=== PATIENT | male | born 1960 | race African-American/Black ===

== ENCOUNTER 2017-05-30 07:46 | Inpatient (IN) | payer OTHER ==
[2017-05-29 16:41] VITALS: BMI 32.5
[2017-05-30] MEDS ORDERED: LIDOCAINE 1%/EPI 1:100000 (20 ML MULTI DOSE VIAL) ONE (08:02)
[2017-05-30] MEDS ORDERED: BUPIVACAINE HCL/PF 0.5% (5MG/ML) 10 ML VIAL ONE (08:02)
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
[2017-05-30] MEDS ORDERED: MIDAZOLAM HCL 2 MG/2 ML SINGLE DOSE VIAL ONE (10:54)
[2017-05-30] MEDS ORDERED: PROPOFOL 20 ML ONE (10:59)
[2017-05-30] MEDS ORDERED: ROCURONIUM BROMIDE 50 MG/5 ML VIAL ONE ×2 (10:59→11:36)
[2017-05-30] MEDS ORDERED: GENTAMICIN SO4 80 MG/2 ML VIAL ONE (11:10)
[2017-05-30] MEDS ORDERED: SODIUM CHLORIDE 0.9% P/F 10 ML VIAL IJ ONE ×2 (11:10→14:13)
[2017-05-30] MEDS ORDERED: ceFAZolin SODIUM 1 GM VIAL ONE ×2 (11:10→14:13)
[2017-05-30] MEDS ORDERED: LIDOCAINE HCL/PF 2% SDV 5ML VIAL ONE (11:10)
[2017-05-30] MEDS ORDERED: LIDOCAINE 1%/EPI 1:100000 (50 ML MULTI DOSE VIAL) INF ONE (11:17)
[2017-05-30] MEDS ORDERED: ceFAZolin SODIUM 1 GM VIAL IVPB ONE ×2 (11:19→14:15)
[2017-05-30] MEDS ORDERED: GENTAMICIN SO4 80 MG/2 ML VIAL IVPB ONE (11:20)
[2017-05-30] MEDS ORDERED: DEXAMETHASONE SOD PHOSPHATE 4 MG/1 ML VIAL ONE (11:21)
[2017-05-30] MEDS ORDERED: ONDANSETRON 4 MG/2 ML VIAL ONE (11:21)
[2017-05-30] MEDS ORDERED: VANCOMYCIN 1,000 MG VIAL (RESTRICTED TO ID ONLY) ONE (14:36)
[2017-05-30] MEDS ORDERED: GLYCOPYRROLATE 0.2 MG/1 ML VIAL ONE (14:40)
[2017-05-30] MEDS ORDERED: NEOSTIGMINE METHYLSULFATE 0.5 MG/ML - 10 ML MDV ONE (14:40)
[2017-05-30] MEDS ORDERED: BUPIVACAINE HCL/PF 0.5% (5MG/ML) 10 ML VIAL IJ ONE (15:05)
[2017-05-30] MEDS ORDERED: PROMETHAZINE HCL 25 MG/1 ML VIAL IVPB PRN (15:38)
[2017-05-30] MEDS ORDERED: DEXAMETHASONE SOD PHOSPHATE 4 MG/1 ML VIAL IVPUSH PRN (15:38)
[2017-05-30] MEDS ORDERED: ONDANSETRON 4 MG/2 ML VIAL IVPUSH PRN ×2 (15:38→15:59)
[2017-05-30] MEDS ORDERED: LACTATED RINGERS SOLUTION 1,000 ML IV SCH (15:45)
[2017-05-30] MEDS ORDERED: diazePAM 5 MG TABLET PO PRN (15:59)
[2017-05-30] MEDS ORDERED: HYDROmorphone *PCA* 10MG/50ML DISP.SYRIN PCA ONE (16:08)
[2017-05-30] MEDS ORDERED: SODIUM CHLORIDE 1,000 ML IV SCH (16:15)
[2017-05-30] MEDS: HYDROmorphone *PCA* 10MG/50ML DISP.SYRIN PCA SCH (16:45)
--- NOTE | 2017-05-30 16:55 | PN ---
Teaching Attending Note Name of Resident: Thee Ritter ATTENDING PHYSICIAN STATEMENT I saw and evaluated the patient. I reviewed the resident's note and discussed the case with the resident. I agree with the resident's findings and plan as documented. SUBJECTIVE:56yo M with PMH chronic back pain ( s/p horse riding accident 20+ years ago) came for lumbar laminectomy for uncontrolled pain. states he was following with Dr Laura from orthopedic surgery and since pain has not improved recommended surgery. has not had any other procedures on his back or steroid injections in the past. states he typically takes percocets as needed for pain. denies Cp, SOB, fever, chills, N/V/C/D. last BM this morning OBJECTIVE: Last Vital Signs Temp Pulse Resp BP Pulse Ox 98.3 F 70 18 152/87 99 05/30/17 08:35 05/30/17 08:35 05/30/17 08:35 05/30/17 08:35 05/30/17 08:35 General lethargic CV S1 S2 RRR no murmur/rub/gallop Lungs CTA anteriorly Abdomen soft NT/ND obsese Extremities no pedal edema no calf tenderness Back +SUKUMAR drain with seroussangenous fluid ASSESSMENT AND PLAN: 56yo M with PMH chronic back pain came for scheduled lumbar laminectomy 1. Chronic back pain- s/p lumbar lamincetomy with SUKUMAR drain placed today by neurosurgery. obtain CT lumbar spine with contrast in the AM. started on prophylactic Vanco and Gentamycin. Cx sent and will follow. will consult ID for abx management. bedrest for tonight. clear liquid diet. SERGEANT AT [employer] pump for pain. further management per neurosurgery. will need PT eval when cleared for OOB 2. Acute blood loss anemia- significant blood loss during surgery. check CBC now and then in 8H to ensure Hgb is stable. txn for Hgb <7 3. DVT ppx- hep sq
[2017-05-30 16:56] LABS: MCHC 32.4 g/dl (32.0-35.9); MEAN CELL VOLUME 80.5 fl (80-96); MEAN PLT VOLUME 9.1 fl (7.5-11.1); PLATELET COUNT 257 K/MM3 (134-434); RDW 18.2 % (11.9-15.9); WHITE BLOOD COUNT 10.5 K/mm3 (4.0-10.0)
[2017-05-30] MEDS ORDERED: VANCOMYCIN 1,500 MG in DEXTROSE 5%-WATER - 500 ML IVPB ONE (17:00)
[2017-05-30] MEDS ORDERED: SODIUM CHLORIDE 1,000 ML IV STA (17:48)
[2017-05-30 17:55] LABS: ALBUMIN 2.7 g/dl (3.4-5.0); ANION GAP 11 (8-16); BILIRUBIN,TOTAL 0.4 mg/dL (0.2-1.0); CALCIUM 8.3 mg/dL (8.5-10.1); CO2 20 mmol/L (21-32); CREATININE 1.7 mg/dL (0.7-1.3); GLUCOSE,RANDOM 178 mg/dL (74-106); SGOT/AST 37 U/L (15-37); SGPT/ALT 52 U/L (12-78); TOT PROT 5.5 g/dl (6.4-8.2)
[2017-05-30 17:56] LABS: ALK PHOS 100 U/L (45-117)
--- NOTE | 2017-05-30 20:59 | HP ---
CHIEF COMPLAINT: Back pain PCP: HISTORY OF PRESENT ILLNESS: The patient is a 56 yo m w/ PMH HTN (not on medication) and chronic low back pain 2/2 to a fall from a horse comes into the ED for a scheduled laminectomy. The patient has been following with Dr. Laura for pain control and was referred to Dr. Ayala when his pain was not able to be controlled. At this point, he elected to undergo a laminectomy and instrumented fusion of L3-S1. Recent Travel: none PAST MEDICAL HISTORY: -HTN, not on medications -Chronic low back pain PAST SURGICAL HISTORY: -liver biopsy -tonsilectomy @ age 20 -circumscision @ age 20 Social History: Smokin-6 cigarettes per day Alcohol: none Drugs: none Family History: HTN and DM in patient's sisters Allergies No Known Allergies Allergy (Verified 05/29/17 16:36) HOME MEDICATIONS: Home Medications Medication Instructions Recorded Oxycodone HCl/Acetaminophen 1 - 2 tab PO Q6H 10/14/12 [Percocet 5-325 mg Tablet] REVIEW OF SYSTEMS CONSTITUTIONAL: Absent: fever, chills, diaphoresis, generalized weakness, malaise, loss of appetite, weight change HEENT: Absent: rhinorrhea, nasal congestion, throat pain, throat swelling, difficulty swallowing, mouth swelling, ear pain, eye pain, visual changes CARDIOVASCULAR: Absent: chest pain, syncope, palpitations, irregular heart rate, lightheadedness , peripheral edema RESPIRATORY: Absent: cough, shortness of breath, dyspnea with exertion, orthopnea, wheezing, stridor, hemoptysis GASTROINTESTINAL: Absent: abdominal pain, abdominal distension, vomiting, diarrhea, constipation, melena, hematochezia GENITOURINARY: Absent: dysuria, frequency, urgency, hesitancy, hematuria, flank pain, genital pain MUSCULOSKELETAL: Absent: myalgia, arthralgia, joint swelling, neck pain SKIN: Absent: rash, itching, pallor HEMATOLOGIC/IMMUNOLOGIC: Absent: easy bleeding, easy bruising, lymphadenopathy, frequent infections ENDOCRINE: Absent: unexplained weight gain, unexplained weight loss, heat intolerance, cold intolerance NEUROLOGIC: Absent: headache, focal weakness or paresthesias, dizziness, unsteady gait, seizure, mental status changes, bladder or bowel incontinence PSYCHIATRIC: Absent: anxiety, depression, suicidal or homicidal ideation, hallucinations. PHYSICAL EXAMINATION Vital Signs - 24 hr 05/30/17 05/30/17 05/30/17 08:35 15:46 16:00 Temperature 98.3 F 99.1 F Pulse Rate 70 102 H 97 H Respiratory 18 23 22 Rate Blood Pressure 152/87 106/68 108/90 O2 Sat by Pulse 99 97 95 Oximetry (%) 05/30/17 05/30/17 05/30/17 16:15 16:30 16:45 Temperature Pulse Rate 92 H 94 H 93 H Respiratory 22 14 15 Rate Blood Pressure 103/48 96/51 95/52 O2 Sat by Pulse 95 95 95 Oximetry (%) 05/30/17 05/30/17 05/30/17 17:00 17:15 17:30 Temperature Pulse Rate 89 89 102 H Respiratory 16 13 20 Rate Blood Pressure 99/53 92/57 110/65 O2 Sat by Pulse 95 95 94 L Oximetry (%) 05/30/17 17:45 Temperature Pulse Rate 97 H Respiratory 20 Rate Blood Pressure 101/53 O2 Sat by Pulse 98 Oximetry (%) GENERAL: Awake, alert, and fully oriented, in no acute distress. HEAD: Normal with no signs of trauma. EYES: Pupils equal, round and reactive to light, extraocular movements intact, sclera anicteric, conjunctiva clear. No lid lag. EARS, NOSE, THROAT: oropharynx clear without exudates. Moist mucous membranes. NECK: Normal range of motion, supple without lymphadenopathy, JVD, or masses. LUNGS: Breath sounds equal, mild expiratory wheezes, and no crackles. No accessory muscle use. HEART: Regular rate and rhythm, normal S1 and S2 without murmur, rub or gallop. ABDOMEN: Soft, slight tenderness to palpation in RLQ, not distended, normoactive bowel sounds, no guarding, no rebound, no masses. No hepatomegaly or splenomegaly. MUSCULOSKELETAL: Normal range of motion at all joints. No bony deformities or tenderness. No CVA tenderness. UPPER EXTREMITIES: 2+ pulses, warm, well-perfused. No cyanosis. No clubbing. No peripheral edema. LOWER EXTREMITIES: 2+ pulses, warm, well-perfused. No calf tenderness. No peripheral edema. NEUROLOGICAL: Cranial nerves II-X intact. Normal speech. gait not observed. Strength 5/5 in all extremities PSYCHIATRIC: Cooperative. Good eye contact. Appropriate mood and affect. SKIN: Warm, dry, normal turgor, no rashes or lesions noted, normal capillary refill. Laboratory Results - last 24 hr 05/30/17 05/30/17 16:20 16:20 WBC 10.5 H D RBC 4.01 D Hgb 10.4 L D Hct 32.3 L D MCV 80.5 MCH 26.0 MCHC 32.4 RDW 18.2 H Plt Count 257 MPV 9.1 Sodium 140 Potassium 4.9 Chloride 109 H Carbon Dioxide 20 L Anion Gap 11 BUN 20 H Creatinine 1.7 H D Creat Clearance w eGFR 42.21 Random Glucose 178 H D Calcium 8.3 L Total Bilirubin 0.4 D AST 37 ALT 52 Alkaline Phosphatase 100 D Total Protein 5.5 L D Albumin 2.7 L D ASSESSMENT/PLAN: The patient is a 56 yo m w/ PMH HTN and chronic back pain who presents to the ED for an elective laminectomy and instrumented fusion. #S/P laminectomy -f/u neurosurgery reccs -Pt on DYNAMOMETER MECHANIC for pain control -prophylactic vancomycin and gentamicin -bedrest overnight -Will consult ID for abx mgmt -f/u urine cx -f/u CT spine to confirm hardware placement. -promethazine PRN nausea #acute blood loss anemia -patient with 1500cc blood loss intraoperatively -post op CBC stable at 10.4 -will RPT CBC in 8 hrs to ensure stable counts -transfuse according to protocol #HTN -Patient with hx HTN -Patient not on medications at home -monitor BP #FEN -NS @ 125 -monitor lytes -regular diet in AM #PPTX -Hep SQ 5ku TID -TEDS b/l -SCDs b/l #dispo -Admit to med-surg. Visit type - Emergency Visit Emergency Visit: Yes ED Registration Date: 05/30/17 Care time: The patient presented to the Emergency Department on the above date and was hospitalized for further evaluation of their emergent condition. - New Patient This patient is new to me today: Yes Date on this admission: 05/30/17 - Critical Care Critical Care patient: No
[2017-05-30] MEDS: ACETAMINOPHEN 325 MG TABLET (FP) PO SCH ×2 (21:22)
[2017-05-30] MEDS: HEPARIN NA (PORCINE) 5,000 UNITS/ML 1ML VIAL SQ SCH (21:24)
[2017-05-30] MEDS ORDERED: VANCOMYCIN 1,000 MG in DEXTROSE 5%-WATER - 250 ML IVPB SCH (22:00)
[2017-05-30] MEDS: PIPERACILLIN/TAZOB 3.375 GM 50 ML IVPB SCH (22:44)
--- NOTE | 2017-05-31 01:32 | OP ---
Operative Note - Note: Operative Date: 05/30/17 Pre-Operative Diagnosis: lumbar degenerative disc disease with instability Operation: L3-S1 laminectomy with interbody cage placement and pedicle screws with fusion L3-S1 Surgeon: Palmer Tillman Manager Of Sales: Viv May Anesthesiologist/BASIC SCIENCES PROFESSOR: Ethan Denise Anesthesia: General Estimated Blood Loss (mls): 1,200 Drains, Volume Out (mls): 400 (peter) Fluid Volume Replaced (mls): 3,500 Operative Report Dictated: Yes
[2017-05-31] MEDS: PIPERACILLIN/TAZOB 3.375 GM 50 ML IVPB SCH ×4 (02:12→20:05)
[2017-05-31 03:11] LABS: MCH 26.1 pg (25.7-33.7); MCHC 32.4 g/dl (32.0-35.9); MEAN CELL VOLUME 80.5 fl (80-96); PLATELET COUNT 203 K/MM3 (134-434); RDW 17.7 % (11.9-15.9)
[2017-05-31] MEDS: ACETAMINOPHEN 325 MG TABLET (FP) PO SCH ×4 (04:49→21:57)
[2017-05-31] MEDS: SODIUM CHLORIDE 1,000 ML IV SCH ×2 (04:52→13:51)
[2017-05-31] MEDS: HEPARIN NA (PORCINE) 5,000 UNITS/ML 1ML VIAL SQ SCH ×2 (05:42→13:50)
[2017-05-31 08:50] LABS: MCHC 32.4 g/dl (32.0-35.9); MEAN CELL VOLUME 80.2 fl (80-96); MEAN PLT VOLUME 9.1 fl (7.5-11.1); PLATELET COUNT 193 K/MM3 (134-434); RDW 18.2 % (11.9-15.9); WHITE BLOOD COUNT 10.2 K/mm3 (4.0-10.0)
[2017-05-31] MEDS ORDERED: PT OWN MED DRAWER 7, Y5N ONE ×3 (09:06→16:55)
[2017-05-31 09:20] LABS: ANION GAP 6 (8-16); CO2 24 mmol/L (21-32); CREATININE 1.2 mg/dL (0.7-1.3); GLUCOSE,RANDOM 105 mg/dL (74-106)
--- NOTE | 2017-05-31 11:20 | PN ---
Progress Note (short form) - Note Progress Note: Anesthesia postop note and pain management follow up 56 y/o M s/p GA for lumbar PLIF, terminal clerk for postop pain management POD#1, vss, aaox3, reports some pain Encouraged to use the terminal clerk Will continue terminal clerk for now No anesthesia complications.
--- NOTE | 2017-05-31 13:11 | PN ---
Progress Note (short form) - Note Progress Note: POD #1 Alert. Sitting in chair at bedside (just finished eating lunch). Has incisional tenderness but adequate pain control via ORDER CLERK. Still has peter in place as his bun/cr was slightly elevated. Denies n/v/f/c, CP , SOB, weakness or tingling sensation to his lower extremities. Last Vital Signs Temp Pulse Resp BP Pulse Ox 98.1 F 72 20 142/72 100 05/31/17 08:10 05/31/17 08:45 05/31/17 08:45 05/31/17 08:45 05/30/17 21:00 CBC 05/31/17 06:00 TREND 05/30/17 05/31/17 16:20 06:00 BUN 20 H 18 Creatinine 1.7 H D 1.2 D SUKUMAR OUTPUT 05/31/17 05/31/17 05/31/17 03:20 06:18 12:10 Left 5 20 20 Right 30 40 90 Gen: alert. nad. Back: aquacel intact. No palpable hematoma. Neuro: 5/5 strength bilat : peter to gravity (clear) LE: scds bilat. no calf tenderness. A/P s/p L3-L5 laminectomy w/ interbody cage placement and pedicle screws with fusion L3-S1 1. Must wear his TLSO brace if seated in chair and or ambulating greater than 5 minutes. 2. TLSO brace from [employer] (ordered) 3. Physical therapy 4. ID following --> Vanco & Zosyn 5. peter to be dc'd tomorrow morning (ordered for 7am)
[2017-05-31] MEDS ORDERED: POLYETHYLENE GLYCOL 3350 119 GM BTL PO PRN (13:40)
--- NOTE | 2017-05-31 13:55 | CON.ID ---
Consult Consult Specialty:: infectious diseases Reason for Consultation:: post op spinal surgery - History of Present Illness History of Present Illness: 56 yo m w/ PMH HTN chronic low back pain 2/2 to a fall from a horse comes s/p laminectomy. The patient has been following with Dr. Laura for pain control and was referred to Dr. Ayala when his pain was not able to be controlled. At this point, he elected to undergo a laminectomy and instrumented fusion of L3- S1. 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 No: Asthma, Bronchitis, COPD Gastrointestinal: No: Constipation, GERD, GI Bleed Renal/: No: Renal Failure, Hematuria, UTI - Alcohol/Substance Use Hx Alcohol Use: Yes (rarely) - Smoking History Smoking history: Current every day smoker Have you smoked in the past 12 months: Yes Aproximately how many cigarettes per day: 7 Home Medications - Allergies Allergies/Adverse Reactions: Allergies Allergy/AdvReac Type Severity Reaction Status Date / Time No Known Allergies Allergy Verified 05/29/17 16:36 - Home Medications Home Medications: Ambulatory Orders Oxycodone HCl/Acetaminophen [Percocet 5-325 mg Tablet] 1 - 2 tab PO Q6H Review of Systems - Review of Systems Constitutional: reports: Other Eyes: reports: No Symptoms HENT: reports: No Symptoms Neck: reports: No Symptoms Cardiovascular: reports: No Symptoms Respiratory: reports: No Symptoms Gastrointestinal: reports: No Symptoms Genitourinary: reports: No Symptoms Musculoskeletal: reports: Back Pain Integumentary: reports: No Symptoms Neurological: reports: No Symptoms Endocrine: reports: No Symptoms Hematology/Lymphatic: reports: No Symptoms Psychiatric: reports: Paranoia Physical Exam Vital Signs: Vital Signs Temperature 98.1 F 05/31/17 08:10 Pulse Rate 94 H 05/31/17 12:45 Respiratory Rate 20 05/31/17 12:45 Blood Pressure 121/61 05/31/17 12:45 O2 Sat by Pulse Oximetry (%) 100 05/30/17 21:00 Constitutional: Yes: Calm, Moderate Distress Eyes: Yes: Conjunctiva Clear HENT: Yes: Atraumatic Cardiovascular: Yes: Regular Rate and Rhythm Respiratory: Yes: Regular, CTA Bilaterally Gastrointestinal: Yes: Normal Bowel Sounds, Soft Musculoskeletal: Yes: Back Pain, Other Extremities: Yes: WNL Wound/Incision: Yes: Dressing Dry and Intact, Other (yasir drain in place) Neurological: Yes: Alert, Oriented Psychiatric: Yes: Alert, Oriented Labs: CBC, BMP 05/31/17 06:00 05/31/17 06:00 Imaging - Results Cat Scan: Report Reviewed, Image Reviewed Assessment/Plan S/P laminectomy #acute blood loss anemia #HTN plan will continue zosyn and vanco for now monitor for drainage rest as per primary team and surgery
--- NOTE | 2017-05-31 16:10 | SURG ---
Surgery Roadway Engineer Note Roadway Engineer: Viv May PA-C Date of Service: 05/30/17 Diagnosis: lumbar degenerative disc disease with instability Procedure: L3-S1 laminectomy with interbody cage placement and pedicle screws with fusion L3-S1 I was present for the entirety of the operative procedure. For further detail, please refer to operative report. Visit type - Case Type Case Type: Scheduled Admission - Emergency Emergency Visit: No - New patient This patient is new to me today: Yes Date on this admission: 05/30/17
--- NOTE | 2017-05-31 17:00 | PN ---
Teaching Attending Note Name of Resident: Walt Ramírez ATTENDING PHYSICIAN STATEMENT I saw and evaluated the patient. I reviewed the resident's note and discussed the case with the resident. I agree with the resident's findings and plan as documented. SUBJECTIVE:c/o back pain 05/22. no relief with PLATE COLORER pump. states he sat in chair for over an hour. was able to ambulate a few steps. denies CP, SOB, fever, chills, N/V/C/D, melena or BRPBR last BM yesterday OBJECTIVE: Last Vital Signs Temp Pulse Resp BP Pulse Ox 98.6 F 94 H 20 121/61 100 05/31/17 14:00 05/31/17 14:00 05/31/17 14:00 05/31/17 14:00 05/30/17 21:00 Intake & Output 05/28/17 05/29/17 05/30/17 05/31/17 23:59 23:59 23:59 23:59 Intake Total 2225 1625 Output Total 1760 2690 Balance 465 -1065 Weight 184 lb 184 lb General NAD CV S1 S2 RRR no murmur/rub/gallop Lungs CTA anteriorly Abdomen soft NT/ND obsese Extremities no pedal edema no calf tenderness Back +SUKUMAR drain with seroussangenous fluid x2. tenderness over bandage. no tenderness above surgical site. no obvious signs of bleeding ASSESSMENT AND PLAN: 56yo M with PMH chronic back pain came for scheduled lumbar laminectomy 1. Chronic back pain- s/p lumbar lamincetomy with SUKUMAR drain placed today by neurosurgery. CT spine obtained. Pain not controlled by PLATE COLORER pump (requested 64x only received 12 boluses) will increase pump. OOB to chair, PT. drain management per neurosugery. on empiric Vanco/ZOsyn day 2. f/u Cx. monitor BM 2. Acute blood loss anemia- significant blood loss during surgery. trending down Hgb. +sangenous drainage in SUKUMAR drains. will monitor for now. txn for Hgb < 7. check iron studies. 3. Continuous nicotine dependence-start nicotine patch. counselled on risks of continued use. 4. DVT ppx- will hold hep sq, will re-start once hgb stabilizes
[2017-05-31] MEDS: VANCOMYCIN 1,250 MG in DEXTROSE 5%-WATER - 250 ML IVPB SCH (17:06)
[2017-05-31] MEDS: FERROUS SO4 325 MG TABLET (FP) PO SCH (17:06)
[2017-05-31 17:20] LABS: MCH 26.2 pg (25.7-33.7); MCHC 32.5 g/dl (32.0-35.9); MEAN CELL VOLUME 80.8 fl (80-96); MEAN PLT VOLUME 9.5 fl (7.5-11.1); PLATELET COUNT 183 K/MM3 (134-434); WHITE BLOOD COUNT 10.1 K/mm3 (4.0-10.0)
[2017-05-31] MEDS: HYDROmorphone *PCA* 10MG/50ML DISP.SYRIN PCA SCH ×2 (18:20→21:15)
[2017-05-31] MEDS: NICOTINE 14 MG/24 HOURS TOPICAL PATCH TD SCH (18:41)
--- NOTE | 2017-05-31 18:49 | PN ---
Physical Exam: SUBJECTIVE: Patient seen and examined at bedside. Patient states that his pain is not controlled on current regimen. OBJECTIVE: Vital Signs Period Temp Pulse Resp BP Sys/Manley Pulse Ox Last 24 Hr 98.1 F-99.5 F 72-94 15-20 109-147/57-72 96-100 GENERAL: The patient is awake, alert, and fully oriented, in no acute distress. HEAD: Normal with no signs of trauma. EYES: extraocular movements intact, sclera anicteric, conjunctiva clear. No ptosis. NECK: Trachea midline, full range of motion, supple. LUNGS: Breath sounds equal, clear to auscultation bilaterally, no wheezes, no crackles, no accessory muscle use. HEART: Regular rate and rhythm, S1, S2 without murmur, rub or gallop. ABDOMEN: Soft, nontender, nondistended, normoactive bowel sounds, no guarding, no rebound, no hepatosplenomegaly, no masses. EXTREMITIES: 2+ pulses, warm, well-perfused, no edema. NEUROLOGICAL: Cranial nerves II through X grossly intact. Normal speech, gait not observed. PSYCH: Normal mood, normal affect. SKIN: Warm, dry, normal turgor, no rashes or lesions noted Laboratory Results - last 24 hr 05/30/17 05/31/17 05/31/17 20:00 03:00 06:00 WBC 9.0 10.2 H RBC 3.44 L 3.19 L Hgb 9.0 L D 8.3 L Hct 27.7 L 25.6 L MCV 80.5 80.2 MCH 26.1 26.0 MCHC 32.4 32.4 RDW 17.7 H 18.2 H Plt Count 203 D 193 MPV 9.0 9.1 Sodium Potassium Chloride Carbon Dioxide Anion Gap BUN Creatinine Random Glucose Calcium Blood Type B POSITIVE Antibody Screen Negative 05/31/17 05/31/17 06:00 16:00 WBC 10.1 H RBC 2.98 L Hgb 7.8 L Hct 24.0 L MCV 80.8 MCH 26.2 MCHC 32.5 RDW 18.0 H Plt Count 183 MPV 9.5 Sodium 141 Potassium 4.4 Chloride 111 H Carbon Dioxide 24 Anion Gap 6 L BUN 18 Creatinine 1.2 D Random Glucose 105 D Calcium 8.0 L Blood Type Antibody Screen Active Medications Generic Name Dose Route Start Last Admin Trade Name Freq PRN Reason Stop Dose Admin Acetaminophen 650 mg 05/30/17 16:00 05/31/17 15:53 Tylenol - PO 650 mg Q6H LISSETTE Administration Dexamethasone Sodium Phosphate 4 mg 05/30/17 15:38 Decadron Injection - IVPUSH ONCE PRN NAUSEA AND/OR VOMITING Diazepam 5 mg 05/30/17 15:59 Valium - PO Q6H PRN PAIN Diphenhydramine HCl 12.5 mg 05/30/17 15:38 Benadryl Injection - IVPUSH ONCE PRN FOR ITCHING Docusate Sodium 100 mg 05/31/17 22:00 Colace - PO BID LISSETTE Fentanyl 50 mcg 05/30/17 15:38 05/30/17 16:30 Sublimaze Injection - IVPUSH 06/02/17 15:39 50 mcg [id number] PRN Administration PAIN Ferrous Sulfate 325 mg 05/31/17 17:30 05/31/17 17:06 Feosol - PO 325 mg BIDWM [facility]TE Administration Hydromorphone HCl 0 mg 05/31/17 17:52 Dilaudid Rn Chronic - FUEL AGENT 06/06/17 15:39 FUEL AGENT LISSETTE Protocol Piperacillin/Tazobactam/Dextrose 50 mls @ 100 mls/hr 05/30/17 21:45 05/31/17 15 :02 Zosyn 3.375gm Ivpb (Premix) IVPB 100 mls/hr Q6H-IV [facility] Administration Protocol Vancomycin HCl 1,250 mg/ 250 mls @ 166.667 mls/hr 05/31/17 17:00 05/31/17 17:06 Dextrose IVPB 166.667 mls/hr DAILY@1700 LISSETTE Administration Protocol Nicotine 14 mg 05/31/17 18:00 Nicoderm Patch - TD DAILY L[facility]TE Ondansetron HCl 4 mg 05/30/17 15:59 Zofran Injection IVPUSH Q6H PRN NAUSEA AND/OR VOMITING Polyethylene Glycol 17 gm 05/31/17 13:40 Miralax (For Daily Use) - PO DAILY PRN CONSTIPATION Promethazine HCl 12.5 mg 05/30/17 15:38 Phenergan Injection - IVPB Q6H PRN NAUSEA AND/OR VOMITING ASSESSMENT/PLAN: The patient is a 56 yo m w/ PMH HTN and chronic back pain who presents to the ED for an elective laminectomy and instrumented fusion. #S/P laminectomy -f/u neurosurgery reccs -Pt on FUEL AGENT for pain control; increased bolus from .2 -> .4 and began basal rate at .1 for max delivery of 4.1 mg/ hr -zosyn 3.375g Q6H -vancomycin 1250mg daily -f/u urine cx -f/u CT spine to confirm hardware placement. -promethazine PRN nausea #acute blood loss anemia -patient with 1500cc blood loss intraoperatively -Hb dropping 10.4 -> 9.0 -> 8.3 -> 7.8 -will RPT CBC in AM -transfuse according to protocol #HTN -Patient with hx HTN -Patient not on medications at home -monitor BP #FEN -NS @ 125 -monitor lytes -regular diet in AM #PPTX -Hep SQ 5ku TID -TEDS b/l -SCDs b/l #dispo -Admit to med-surg. Visit type - Emergency Visit Emergency Visit: Yes ED Registration Date: 05/30/17 Care time: The patient presented to the Emergency Department on the above date and was hospitalized for further evaluation of their emergent condition. - New Patient This patient is new to me today: No - Critical Care Critical Care patient: No
[2017-05-31] MEDS ORDERED: HYDROmorphone *PCA* 10MG/50ML DISP.SYRIN PCA ONE (20:45)
[2017-05-31] MEDS: DOCUSATE SODIUM 100 MG CAPSULE (FP) PO SCH (21:57)
[2017-06-01] MEDS: PIPERACILLIN/TAZOB 3.375 GM 50 ML IVPB SCH ×4 (02:54→21:54)
[2017-06-01] MEDS: ACETAMINOPHEN 325 MG TABLET (FP) PO SCH ×4 (03:24→21:37)
--- NOTE | 2017-06-01 06:18 | PN ---
Physical Exam: SUBJECTIVE: Patient seen and examined at bedside. He states that he "Feels worse today than on the day of my operation". He feels uncomfortable and in pain. Pain is not controlled as per patient. OBJECTIVE: Vital Signs Period Temp Pulse Resp BP Sys/Manley Pulse Ox Last 24 Hr 98.1 F-99.2 F 72-96 10 121-165/61-95 GENERAL: The patient is awake, alert, and fully oriented, in no acute distress. HEAD: Normal with no signs of trauma. NECK: Trachea midline, full range of motion, supple. LUNGS: Breath sounds equal, clear to auscultation bilaterally, no wheezes, no crackles, no accessory muscle use. HEART: Regular rate and rhythm, S1, S2 without murmur, rub or gallop. ABDOMEN: Soft, nontender, nondistended, normoactive bowel sounds, no guarding, no rebound. EXTREMITIES: 2+ pulses, warm, well-perfused, no edema. NEUROLOGICAL: Cranial nerves II through X grossly intact. Normal speech, gait not observed. strength 5/5 in all extremities PSYCH: Normal mood, normal affect. SKIN: Warm, dry, normal turgor, no rashes or lesions noted Laboratory Results - last 24 hr 05/31/17 05/31/17 05/31/17 06:00 06:00 16:00 WBC 10.2 H 10.1 H RBC 3.19 L 2.98 L Hgb 8.3 L 7.8 L Hct 25.6 L 24.0 L MCV 80.2 80.8 MCH 26.0 26.2 MCHC 32.4 32.5 RDW 18.2 H 18.0 H Plt Count 193 183 MPV 9.1 9.5 Sodium 141 Potassium 4.4 Chloride 111 H Carbon Dioxide 24 Anion Gap 6 L BUN 18 Creatinine 1.2 D Random Glucose 105 D Calcium 8.0 L Active Medications Generic Name Dose Route Start Last Admin Trade Name Freq PRN Reason Stop Dose Admin Acetaminophen 650 mg 05/30/17 16:00 06/01/17 03:24 Tylenol - PO 650 mg Q6H LIS[facility]TE Administration Dexamethasone Sodium Phosphate 4 mg 05/30/17 15:38 Decadron Injection - IVPUSH ONCE PRN NAUSEA AND/OR VOMITING Diazepam 5 mg 05/30/17 15:59 Valium - PO Q6H PRN PAIN Diphenhydramine HCl 12.5 mg 05/30/17 15:38 Benadryl Injection - IVPUSH ONCE PRN FOR ITCHING Docusate Sodium 100 mg 05/31/17 22:00 05/31/17 21:57 Colace - PO 100 mg BID [facility] Administration Fentanyl 50 mcg 05/30/17 15:38 05/30/17 16:30 Sublimaze Injection - IVPUSH 06/02/17 15:39 50 mcg [id number] PRN Administration PAIN Ferrous Sulfate 325 mg 05/31/17 17:30 05/31/17 17:06 Feosol - PO 325 mg BIDWM [place] Administration Hydromorphone HCl 0 mg 05/31/17 17:52 05/31/17 21:15 Dilaudid Wallpaper Printer Helper - CUSTOMS OFFICER 06/06/17 15:39 10 mg CUSTOMS OFFICER LISSETTE Administration Protocol Piperacillin/Tazobactam/Dextrose 50 mls @ 100 mls/hr 05/30/17 21:45 06/01/17 02 :54 Zosyn 3.375gm Ivpb (Premix) IVPB 100 mls/hr Q6H-IV [facility] Administration Protocol Vancomycin HCl 1,250 mg/ 250 mls @ 166.667 mls/hr 05/31/17 17:00 05/31/17 17:06 Dextrose IVPB 166.667 mls/hr DAILY@1700 LISSETTE Administration Protocol Nicotine 14 mg 05/31/17 18:00 05/31/17 18:41 Nicoderm Patch - TD 14 mg DAILY [facility] Administration Ondansetron HCl 4 mg 05/30/17 15:59 Zofran Injection IVPUSH Q6H PRN NAUSEA AND/OR VOMITING Polyethylene Glycol 17 gm 05/31/17 13:40 Miralax (For Daily Use) - PO DAILY PRN CONSTIPATION Promethazine HCl 12.5 mg 05/30/17 15:38 Phenergan Injection - IVPB Q6H PRN NAUSEA AND/OR VOMITING ASSESSMENT/PLAN: The patient is a 56 yo m w/ PMH HTN and chronic back pain who presents to the ED for an elective laminectomy and instrumented fusion. #S/P laminectomy -f/u neurosurgery reccs -Pt on CUSTOMS OFFICER for pain control; increased bolus from .2 -> .4 and began basal rate at .1 for max delivery of 4.1 mg/ hr -zosyn 3.375g Q6H -vancomycin 1250mg daily -f/u urine cx -f/u CT spine to confirm hardware placement. -promethazine PRN nausea -patient should wear his TSLO brace whenever sitting or moving. His increased pain may be partly due to movement and sitting without proper support. #acute blood loss anemia -patient with 1500cc blood loss intraoperatively -Hb stable today -will RPT CBC in AM -transfuse according to protocol #HTN -Patient with hx HTN -Patient not on medications at home -monitor BP #FEN -NS @ 125 -monitor lytes -regular diet in AM #PPTX -Hep SQ 5ku TID -TEDS b/l -SCDs b/l #dispo -Admit to med-surg. Visit type - Emergency Visit Emergency Visit: Yes ED Registration Date: 05/30/17 Care time: The patient presented to the Emergency Department on the above date and was hospitalized for further evaluation of their emergent condition. - New Patient This patient is new to me today: No - Critical Care Critical Care patient: No
[2017-06-01 08:42] LABS: BASOPHIL 0.5 % (0-2.0); EOSINOPHIL 0.5 % (0-4.5); MCH 26.1 pg (25.7-33.7); MCHC 32.4 g/dl (32.0-35.9); MEAN CELL VOLUME 80.6 fl (80-96); MEAN PLT VOLUME 9.1 fl (7.5-11.1); NEUTROPHILS 61.1 % (42.8-82.8); PLATELET COUNT 188 K/MM3 (134-434); RDW 18.1 % (11.9-15.9); WHITE BLOOD COUNT 9.8 K/mm3 (4.0-10.0)
[2017-06-01] MEDS: FERROUS SO4 325 MG TABLET (FP) PO SCH ×2 (08:45→17:11)
[2017-06-01] MEDS ORDERED: PT OWN MED DRAWER 7, Y5N ONE (09:51)
[2017-06-01 09:53] LABS: ANION GAP 7 (8-16); CO2 24 mmol/L (22-28); CREATININE 0.9 mg/dl (0.6-1.3); GLUCOSE,RANDOM 87 mg/dl (74-106)
[2017-06-01] MEDS: DOCUSATE SODIUM 100 MG CAPSULE (FP) PO SCH ×2 (09:55→21:36)
[2017-06-01] MEDS: NICOTINE 14 MG/24 HOURS TOPICAL PATCH TD SCH (09:56)
[2017-06-01] MEDS ORDERED: amLODIPine BESYLATE 5 MG TABLET (FP) PO ONE (12:00)
--- NOTE | 2017-06-01 12:16 | PN ---
Progress Note (short form) - Note Progress Note: Pain follow up Continue PROFESSIONAL APPLICATION DESIGNER for today Mi Benson MD.
[2017-06-01] MEDS: HEPARIN NA (PORCINE) 5,000 UNITS/ML 1ML VIAL SQ SCH ×2 (13:15→21:36)
--- NOTE | 2017-06-01 13:26 | PN ---
Progress Note (short form) - Note Progress Note: POD #2 Patient lying in bed. Hasn't been out of bed. Not ambulating. TLSO brace in chair but hasn't worn yet. Still c/o back pain (incisional). Anesthesia note appreciated --> still on REFINERY OPERATOR ASSISTANT. Last Vital Signs Temp Pulse Resp BP Pulse Ox 98.2 F 83 20 163/69 100 06/01/17 08:25 06/01/17 10:19 06/01/17 09:25 06/01/17 10:19 05/30/17 21:00 CBC, BMP 06/01/17 06:00 06/01/17 06:00 Gen: alert. nad. Back: aquacel intact. No palpable hematoma. SUKUMAR x 2 (serous) on bulb suction Neuro: 5/5 strength bilat LE: scds bilat. no calf tenderness. A/P POD #2 s/p L3-L5 laminectomy w/ interbody cage placement and pedicle screws with fusion L3-S1 1. Must wear his TLSO brace if seated in chair and or ambulating greater than 5 minutes. 2. Cleared to begin PT 3. ID following --> Zosyn 4. Monitor H/H --> trending up (drift likely due to acute blood loss during surgery) 5. REFINERY OPERATOR ASSISTANT pain management
--- NOTE | 2017-06-01 13:51 | PN ---
Teaching Attending Note Name of Resident: Walt Ramírez ATTENDING PHYSICIAN STATEMENT I saw and evaluated the patient. I reviewed the resident's note and discussed the case with the resident. I agree with the resident's findings and plan as documented. SUBJECTIVE:states pain is improved but feels more tired today. hesitant to getting out of bed. denies CP, SOB, fever, chills, N/V/C/D OBJECTIVE: Last Vital Signs Temp Pulse Resp BP Pulse Ox 98.2 F 83 20 163/69 100 06/01/17 08:25 06/01/17 10:19 06/01/17 09:25 06/01/17 10:19 05/30/17 21:00 General NAD Back +SUKUMAR drain with seroussangenous fluid x2. tenderness over bandage. no tenderness above surgical site. no obvious signs of bleeding ASSESSMENT AND PLAN: 56yo M with PMH chronic back pain came for scheduled lumbar laminectomy 1. Chronic back pain- s/p lumbar lamincetomy with SUKUMAR drain 05/30. will need to wear TSLO brace when out of bed or ambulating >5mins. pain improved on increased dilaudid CORKING MACHINE OPERATOR. would continue to another 24H and then decrease as pain should cont to improve. OOB to chair, PT. drain management per neurosugery. on empiric Vanco/ZOsyn day 3. f/u Cx. monitor BM 2. Acute blood loss anemia- significant blood loss during surgery. Hgb stable. check iron studies.txn for Hgb <7. check iron studies. 3. Continuous nicotine dependence-on nicotine patch. counselled on risks of continued use. 4. DVT ppx- re-start hep sq
--- NOTE | 2017-06-01 14:20 | PN ---
Progress Note, Physician History of Present Illness: stable no new issues pain main issues - Current Medication List Current Medications: Active Medications Acetaminophen (Tylenol -) 650 mg PO Q6H [facility] Last Admin: 06/01/17 09:55 Dose: 650 mg Dexamethasone Sodium Phosphate (Decadron Injection -) 4 mg IVPUSH ONCE PRN PRN Reason: NAUSEA AND/OR VOMITING Diazepam (Valium -) 5 mg PO Q6H PRN PRN Reason: PAIN Diphenhydramine HCl (Benadryl Injection -) 12.5 mg IVPUSH ONCE PRN PRN Reason: FOR ITCHING Docusate Sodium (Colace -) 100 mg PO BID [facility] Last Admin: 06/01/17 09:55 Dose: 100 mg Fentanyl (Sublimaze Injection -) 50 mcg IVPUSH [id number] PRN PRN Reason: PAIN Stop: 06/02/17 15:39 Last Admin: 05/30/17 16:30 Dose: 50 mcg Ferrous Sulfate (Feosol -) 325 mg PO BIDWM [facility] Last Admin: 06/01/17 08:45 Dose: 325 mg Heparin Sodium (Porcine) (Heparin -) 5,000 unit SQ TID [facility] Last Admin: 06/01/17 13:15 Dose: 5,000 unit Hydromorphone HCl (Dilaudid Shear Grinder Operator -) 0 mg WASHING MACHINE ASSEMBLER WASHING MACHINE ASSEMBLER [facility] PRN Reason: Protocol Stop: 06/06/17 15:39 Last Admin: 05/31/17 21:15 Dose: 10 mg Piperacillin/Tazobactam/Dextrose (Zosyn 3.375gm Ivpb (Premix)) 50 mls @ 100 mls /hr IVPB Q6H-IV [facility] PRN Reason: Protocol Last Admin: 06/01/17 08:47 Dose: 100 mls/hr Vancomycin HCl 1,250 mg/ (Dextrose) 250 mls @ 166.667 mls/hr IVPB DAILY@1700 LISSETTE PRN Reason: Protocol Last Admin: 05/31/17 17:06 Dose: 166.667 mls/hr Nicotine (Nicoderm Patch -) 14 mg TD DAILY [facility] Last Admin: 06/01/17 09:56 Dose: 14 mg Ondansetron HCl (Zofran Injection) 4 mg IVPUSH Q6H PRN PRN Reason: NAUSEA AND/OR VOMITING Polyethylene Glycol (Miralax (For Daily Use) -) 17 gm PO DAILY PRN PRN Reason: CONSTIPATION Promethazine HCl (Phenergan Injection -) 12.5 mg IVPB Q6H PRN PRN Reason: NAUSEA AND/OR VOMITING - Objective Vital Signs: Vital Signs Temperature 98.2 F 06/01/17 08:25 Pulse Rate 83 06/01/17 10:19 Respiratory Rate 20 06/01/17 09:25 Blood Pressure 163/69 06/01/17 10:19 O2 Sat by Pulse Oximetry (%) 100 05/30/17 21:00 Constitutional: Yes: No Distress, Calm Cardiovascular: Yes: Regular Rate and Rhythm Respiratory: Yes: Regular, CTA Bilaterally Gastrointestinal: Yes: Normal Bowel Sounds, Soft Musculoskeletal: Yes: Other Extremities: Yes: WNL Wound/Incision: Yes: Dressing Dry and Intact Neurological: Yes: Alert, Oriented Psychiatric: Yes: Alert, Oriented Labs: CBC, BMP 06/01/17 06:00 06/01/17 06:00 Assessment/Plan S/P laminectomy #acute blood loss anemia #HTN plan will stop vanco tomorrow monitor drainage rest as per primary team
[2017-06-01] MEDS: VANCOMYCIN 1,250 MG in DEXTROSE 5%-WATER - 250 ML IVPB SCH (17:11)
[2017-06-01] MEDS: HYDROmorphone *PCA* 10MG/50ML DISP.SYRIN PCA SCH (19:55)
[2017-06-02] MEDS: PIPERACILLIN/TAZOB 3.375 GM 50 ML IVPB SCH ×4 (02:03→20:46)
[2017-06-02] MEDS: ACETAMINOPHEN 325 MG TABLET (FP) PO SCH (04:00)
[2017-06-02 06:06] LABS: SERUM IRON 91 ug/dL (38-169); TOTAL IRON BINDING CAPACITY 376 ug/dL (250-450); UIBC 285 ug/dL (111-343)
[2017-06-02] MEDS: HEPARIN NA (PORCINE) 5,000 UNITS/ML 1ML VIAL SQ SCH ×3 (06:23→22:27)
--- NOTE | 2017-06-02 07:53 | PN ---
Progress Note (short form) - Note Progress Note: states pain has improved. no BM since day of presentation. denie Cp, SOB, fever , chills, blurred vision or MIRANDA. Current Medications Generic Name Dose Route Start Last Admin Trade Name Freq PRN Reason Stop Dose Admin Acetaminophen 650 mg 05/30/17 16:00 06/02/17 04:00 Tylenol - PO 650 mg Q6H LISSETTE Administration Dexamethasone Sodium Phosphate 4 mg 05/30/17 15:38 Decadron Injection - IVPUSH ONCE PRN NAUSEA AND/OR VOMITING Diazepam 5 mg 05/30/17 15:59 Valium - PO Q6H PRN PAIN Diphenhydramine HCl 12.5 mg 05/30/17 15:38 Benadryl Injection - IVPUSH ONCE PRN FOR ITCHING Docusate Sodium 100 mg 05/31/17 22:00 06/01/17 21:36 Colace - PO 100 mg BID LISSETTE Administration Fentanyl 50 mcg 05/30/17 15:38 05/30/17 16:30 Sublimaze Injection - IVPUSH 06/02/17 15:39 50 mcg [id number] PRN Administration PAIN Ferrous Sulfate 325 mg 05/31/17 17:30 06/01/17 17:11 Feosol - PO 325 mg BIDWM LISSETTE Administration Heparin Sodium (Porcine) 5,000 unit 06/01/17 14:00 06/02/17 06:23 Heparin - SQ 5,000 unit TID LISSETTE Administration Hydromorphone HCl 0 mg 05/31/17 17:52 06/01/17 19:55 Dilaudid Retail Office Manager - AUTOMOTIVE INSTRUCTOR 06/06/17 15:39 Not Given AUTOMOTIVE INSTRUCTOR LISSETTE Protocol Piperacillin/Tazobactam/Dextrose 50 mls @ 100 mls/hr 05/30/17 21:45 06/02/17 02 :03 Zosyn 3.375gm Ivpb (Premix) IVPB 100 mls/hr Q6H-IV LISSETTE Administration Protocol Vancomycin HCl 1,250 mg/ 250 mls @ 166.667 mls/hr 05/31/17 17:00 06/01/17 17:11 Dextrose IVPB 166.667 mls/hr DAILY@1700 LISSETTE Administration Protocol Nicotine 14 mg 05/31/17 18:00 06/01/17 09:56 Nicoderm Patch - TD 14 mg DAILY LISSETTE Administration Ondansetron HCl 4 mg 05/30/17 15:59 Zofran Injection IVPUSH Q6H PRN NAUSEA AND/OR VOMITING Polyethylene Glycol 17 gm 05/31/17 13:40 Miralax (For Daily Use) - PO DAILY PRN CONSTIPATION Promethazine HCl 12.5 mg 05/30/17 15:38 Phenergan Injection - IVPB Q6H PRN NAUSEA AND/OR VOMITING Last Vital Signs Temp Pulse Resp BP Pulse Ox 98.8 F 77 20 129/75 100 06/02/17 05:00 06/02/17 05:15 06/02/17 05:15 06/02/17 06:37 05/30/17 21:00 General NAD CV S1 S2 RRR no murmur/rub/gallop Lungs CTA B/L no wheezing/rales/rhonchi Abdomen soft NT/ND Back +SUKUMAR drain with seroussangenous fluid x2. tenderness over bandage. no tenderness above surgical site. no obvious signs of bleeding Microbiology 05/30/17 16:30 Urine Culture - Final Urine - Urine Bonilla NO GROWTH OBTAINED ASSESSMENT AND PLAN: 56yo M with PMH chronic back pain came for scheduled lumbar laminectomy 1. Chronic back pain- s/p lumbar lamincetomy with SUKUMAR drain 05/30. will need to wear TSLO brace when out of bed or ambulating >5mins. pain improved with minimal demand boluses over past 24H. will d/c AUTOMOTIVE INSTRUCTOR pump and place on dilaudid 2mg IVPB Q3H prn. will adjust as needed to optimize pain. encouraged OOB to chair with TSLO brace. on empiric Vanco/ZOsyn day 4. SUKUMAR drain management per neurosurg. f/u Cx. will need LEVAR placement. 2. Acute blood loss anemia- significant blood loss during surgery. Hgb stable. iron studies WNL.txn for Hgb <7. 3. Constipation- no BM >48H. start stool softeners. if no BM in 24H consider relistor 4. Elevated BP- may be due to pain vs long standing undiagnosed HTN. start norvasc 5mg 5. Continuous nicotine dependence-on nicotine patch. counselled on risks of continued use. 6. DVT ppx- hep sq Visit type - Emergency Visit Emergency Visit: Yes ED Registration Date: 05/30/17 Care time: The patient presented to the Emergency Department on the above date and was hospitalized for further evaluation of their emergent condition. - New Patient This patient is new to me today: No - Critical Care Critical Care patient: No - Discharge Referral Referred to [facility] No
--- NOTE | 2017-06-02 08:42 | PN ---
Progress Note (short form) - Note Progress Note: Patient comfortable in bed. Using PLATING DEPARTMENT HELPER. Patient has been out of bed and ambulating short distances. SUKUMAR drainage reducing with time. I agree with Dr. Nelson' plan to wean PLATING DEPARTMENT HELPER starting tomorrow. Will plan for SUKUMAR removal on Sunday Patient should be ready for placement early this week and has requested to speak with Social Work on Sunday.
[2017-06-02 08:44] LABS: MCH 25.9 pg (25.7-33.7); MCHC 31.9 g/dl (32.0-35.9); MEAN CELL VOLUME 81.5 fl (80-96); MEAN PLT VOLUME 9.5 fl (7.5-11.1); PLATELET COUNT 217 K/MM3 (134-434); RDW 18.1 % (11.9-15.9); WHITE BLOOD COUNT 8.8 K/mm3 (4.0-10.0)
[2017-06-02] MEDS: FERROUS SO4 325 MG TABLET (FP) PO SCH (08:48)
[2017-06-02] MEDS ORDERED: PT OWN MED DRAWER 7, Y5N ONE (09:50)
[2017-06-02] MEDS: NICOTINE 14 MG/24 HOURS TOPICAL PATCH TD SCH (10:09)
[2017-06-02] MEDS: amLODIPine BESYLATE 5 MG TABLET (FP) PO SCH (10:10)
[2017-06-02] MEDS: POLYETHYLENE GLYCOL 3350 119 GM BTL PO SCH (10:13)
[2017-06-02] MEDS: HYDROmorphone HCL CARPU-JECT 2 MG/1 ML DISP.SYRIN IVPB PRN ×3 (12:10→22:34)
--- NOTE | 2017-06-02 13:21 | PN ---
Progress Note, Physician History of Present Illness: doing wel no issues mobile pain still present - Current Medication List Current Medications: Active Medications Acetaminophen (Tylenol -) 650 mg PO Q6H PRN PRN Reason: FEVER OR PAIN Amlodipine Besylate (Norvasc -) 5 mg PO DAILY [facility] Last Admin: 06/02/17 10:10 Dose: 5 mg Dexamethasone Sodium Phosphate (Decadron Injection -) 4 mg IVPUSH ONCE PRN PRN Reason: NAUSEA AND/OR VOMITING Diazepam (Valium -) 5 mg PO Q6H PRN PRN Reason: PAIN Diphenhydramine HCl (Benadryl Injection -) 12.5 mg IVPUSH ONCE PRN PRN Reason: FOR ITCHING Fentanyl (Sublimaze Injection -) 50 mcg IVPUSH [id number] PRN PRN Reason: PAIN Stop: 06/02/17 15:39 Last Admin: 05/30/17 16:30 Dose: 50 mcg Heparin Sodium (Porcine) (Heparin -) 5,000 unit SQ TID [facility] Last Admin: 06/02/17 06:23 Dose: 5,000 unit Hydromorphone HCl (Dilaudid Injection -) 2 mg IVPB Q3H PRN PRN Reason: PAIN Last Admin: 06/02/17 12:10 Dose: 2 mg Piperacillin/Tazobactam/Dextrose (Zosyn 3.375gm Ivpb (Premix)) 50 mls @ 100 mls /hr IVPB Q6H-IV [facility] PRN Reason: Protocol Last Admin: 06/02/17 10:09 Dose: 100 mls/hr Vancomycin HCl 1,250 mg/ (Dextrose) 250 mls @ 166.667 mls/hr IVPB DAILY@1700 [facility]TE PRN Reason: Protocol Last Admin: 06/01/17 17:11 Dose: 166.667 mls/hr Nicotine (Nicoderm Patch -) 14 mg TD DAILY [facility] Last Admin: 06/02/17 10:09 Dose: 14 mg Ondansetron HCl (Zofran Injection) 4 mg IVPUSH Q6H PRN PRN Reason: NAUSEA AND/OR VOMITING Oxycodone HCl (Roxicodone -) 5 mg PO Q3H PRN PRN Reason: MODERATE PAIN Polyethylene Glycol (Miralax (For Daily Use) -) 17 gm PO DAILY [facility] Last Admin: 06/02/17 10:13 Dose: 17 gm Promethazine HCl (Phenergan Injection -) 12.5 mg IVPB Q6H PRN PRN Reason: NAUSEA AND/OR VOMITING Senna (Senna -) 2 tab PO HS LISSETTE - Objective Vital Signs: Vital Signs Temperature 98.6 F 06/02/17 10:00 Pulse Rate 76 06/02/17 10:00 Respiratory Rate 20 06/02/17 10:00 Blood Pressure 142/86 06/02/17 10:00 O2 Sat by Pulse Oximetry (%) 100 06/02/17 09:00 Constitutional: Yes: Calm, Mild Distress Cardiovascular: Yes: Regular Rate and Rhythm Respiratory: Yes: Regular, CTA Bilaterally Gastrointestinal: Yes: Normal Bowel Sounds, Soft Musculoskeletal: Yes: Other Extremities: Yes: Other Wound/Incision: Yes: Dressing Dry and Intact Neurological: Yes: Alert, Oriented Psychiatric: Yes: Alert, Oriented Labs: CBC, BMP 06/02/17 06:00 06/01/17 06:00 Assessment/Plan S/P laminectomy #acute blood loss anemia #HTN draiange decreasing plan stopped vanco will stop zosyn tomorrow rest as per primary team and neurosurgeon
[2017-06-02] MEDS: HYDROmorphone *PCA* 10MG/50ML DISP.SYRIN PCA SCH (15:32)
--- NOTE | 2017-06-02 17:53 | PN ---
Progress Note (short form) - Note Progress Note: Anesthesia EMBLEM CUTTER round. Pat S/P Lumbar fusion surgery, POD# 3. EMBLEM CUTTER D/C'd today by primary team. On prn meds. Pain well controlled. VSS. Signed off.
[2017-06-02] MEDS: oxyCODONE HCL 5 MG TABLET PO PRN (20:51)
[2017-06-02] MEDS: ACETAMINOPHEN 325 MG TABLET (FP) PO PRN (20:52)
[2017-06-02] MEDS: SENNOSIDES 8.6MG TABLET (FP) PO SCH (22:27)
[2017-06-03] MEDS: PIPERACILLIN/TAZOB 3.375 GM 50 ML IVPB SCH ×2 (02:12→08:37)
[2017-06-03] MEDS: HEPARIN NA (PORCINE) 5,000 UNITS/ML 1ML VIAL SQ SCH ×3 (06:25→22:11)
[2017-06-03] MEDS: oxyCODONE HCL 5 MG TABLET PO PRN ×5 (06:32→22:14)
[2017-06-03] MEDS: ACETAMINOPHEN 325 MG TABLET (FP) PO PRN (06:33)
--- NOTE | 2017-06-03 09:05 | PN ---
Teaching Attending Note Name of Resident: Walt Ramírez ATTENDING PHYSICIAN STATEMENT I saw and evaluated the patient. I reviewed the resident's note and discussed the case with the resident. I agree with the resident's findings and plan as documented. SUBJECTIVE:states pain is controlled. denies CP, SOB, fever, chills, N/V/C/D OBJECTIVE: Last Vital Signs Temp Pulse Resp BP Pulse Ox 98.4 F 82 20 157/82 100 06/03/17 08:55 06/03/17 08:55 06/03/17 08:55 06/03/17 08:55 06/02/17 21:00 Intake & Output 05/31/17 06/01/17 06/02/17 06/03/17 23:59 23:59 23:59 23:59 Intake Total 3943 1150 1300 100 Output Total 4597 3710 2105 30 Balance -923 -2560 -805 70 General NAD CV S1 S2 RRR no murmur/rub/gallop Lungs CTA B/L no wheezing/rales/rhonchi Abdomen soft NT/ND Back +SUKUMAR drain with seroussangenous fluid x2. tenderness over bandage. no tenderness above surgical site. no obvious signs of bleeding ASSESSMENT AND PLAN: 56yo M with PMH chronic back pain came for scheduled lumbar laminectomy 1. Chronic back pain- s/p lumbar lamincetomy with SUKUMAR drain 05/30. will need to wear TSLO brace when out of bed or ambulating >5mins. pain controlled with percocet and dilaudid prn. plan to d/c all abx today. Possible SUKUMAR drain removal tomorrow. SUKUMAR drain management per neurosurg. f/u Cx. will need LEVAR placement. 2. Acute blood loss anemia- significant blood loss during surgery. Hgb stable. iron studies WNL.txn for Hgb <7. 3. Constipation- no BM >48H. will give reslistor. cont stool softeners. 4. HTN- above goal. give additional norasc today and monitor, 5. Continuous nicotine dependence-on nicotine patch. counselled on risks of continued use. 6. DVT ppx- hep sq 7. d/w CM will need LEVAR placement. JUAN to be sent
[2017-06-03] MEDS ORDERED: PT OWN MED DRAWER 7, Y5N ONE (09:32)
[2017-06-03] MEDS: amLODIPine BESYLATE 5 MG TABLET (FP) PO SCH (09:37)
[2017-06-03] MEDS: NICOTINE 14 MG/24 HOURS TOPICAL PATCH TD SCH (09:37)
[2017-06-03] MEDS: POLYETHYLENE GLYCOL 3350 119 GM BTL PO SCH (09:37)
[2017-06-03] MEDS ORDERED: amLODIPine BESYLATE 5 MG TABLET (FP) PO ONE (09:45)
--- NOTE | 2017-06-03 09:47 | PN ---
Physical Exam: SUBJECTIVE: Patient seen and examined at bedside. He looks and feels better today. Pain is moderately controlled on current meds. OBJECTIVE: Vital Signs Period Temp Pulse Resp BP Sys/Manley Pulse Ox Last 24 Hr 98.0 F-99.2 F 71-93 20-20 140-177/70-86 100 GENERAL: The patient is awake, alert, and fully oriented, in no acute distress. HEAD: Normal with no signs of trauma. NECK: Trachea midline, full range of motion, supple. LUNGS: Breath sounds equal, clear to auscultation bilaterally, no wheezes, no crackles, no accessory muscle use. HEART: Regular rate and rhythm, S1, S2 without murmur, rub or gallop. ABDOMEN: Soft, nontender, nondistended, normoactive bowel sounds, no guarding, no rebound. EXTREMITIES: 2+ pulses, warm, well-perfused, no edema. NEUROLOGICAL: Cranial nerves II through X grossly intact. Normal speech, gait not observed. SKIN: Warm, dry, normal turgor, no rashes or lesions noted. Laboratory Results - last 24 hr 06/02/17 16:30 Vancomycin Pre-Dose 3.765 L* Active Medications Generic Name Dose Route Start Last Admin Trade Name Freq PRN Reason Stop Dose Admin Acetaminophen 650 mg 06/02/17 08:48 06/03/17 06:33 Tylenol - PO 650 mg Q6H PRN Administration FEVER OR PAIN Amlodipine Besylate 5 mg 06/02/17 10:00 06/03/17 09:37 Norvasc - PO 5 mg DAILY [facility] Administration Dexamethasone Sodium Phosphate 4 mg 05/30/17 15:38 Decadron Injection - IVPUSH ONCE PRN NAUSEA AND/OR VOMITING Diphenhydramine HCl 12.5 mg 05/30/17 15:38 Benadryl Injection - IVPUSH ONCE PRN FOR ITCHING Heparin Sodium (Porcine) 5,000 unit 06/01/17 14:00 06/03/17 06:25 Heparin - SQ 5,000 unit TID [facility] Administration Hydromorphone HCl 2 mg 06/02/17 08:47 06/02/17 22:34 Dilaudid Injection - IVPB 2 mg Q3H PRN Administration PAIN Piperacillin/Tazobactam/Dextrose 50 mls @ 100 mls/hr 05/30/17 21:45 06/03/17 08 :37 Zosyn 3.375gm Ivpb (Premix) IVPB 100 mls/hr Q6H-IV [facility] Administration Protocol Methylnaltrexone [place] 8 mg 06/03/17 10:00 Relistor - SQ DAILY [facility] Nicotine 14 mg 05/31/17 18:00 06/03/17 09:37 Nicoderm Patch - TD 14 mg DAILY [facility] Administration Ondansetron HCl 4 mg 05/30/17 15:59 Zofran Injection IVPUSH Q6H PRN NAUSEA AND/OR VOMITING Oxycodone HCl 5 mg 06/02/17 08:49 06/03/17 06:32 Roxicodone - PO 5 mg Q3H PRN Administration MODERATE PAIN Polyethylene Glycol 17 gm 06/02/17 10:00 06/03/17 09:37 Miralax (For Daily Use) - PO 17 gm DAILY [facility] Administration Promethazine HCl 12.5 mg 05/30/17 15:38 Phenergan Injection - IVPB Q6H PRN NAUSEA AND/OR VOMITING Senna 2 tab 06/02/17 22:00 06/02/17 22:27 Senna - PO 2 tab HS [facility] Administration ASSESSMENT/PLAN: The patient is a 56 yo m w/ PMH HTN and chronic back pain who presents to the ED for an elective laminectomy and instrumented fusion. #S/P laminectomy -f/u neurosurgery reccs; patient for possible SUKUMAR removal sunday -[employer] D/C'd -pain control w/ dilaudid 2mg IVPB Q3H, Oxy 5mg Q3H -zosyn 3.375g Q6H day 5 -vancomycin dc'd -promethazine PRN nausea -patient should wear his TSLO brace whenever sitting or moving. #Constipation -Relistor 8mg SQ daily -Miralax -senna #acute blood loss anemia -Hb stable today -will monitor -transfuse according to protocol #HTN -Patient with hx HTN -Patient not on medications at home -monitor BP #FEN -NS @ 125 -monitor lytes -regular diet in AM #PPTX -Hep SQ 5ku TID -TEDS b/l -SCDs b/l #dispo -Admit to med-surg. Visit type - Emergency Visit Emergency Visit: Yes ED Registration Date: 05/30/17 Care time: The patient presented to the Emergency Department on the above date and was hospitalized for further evaluation of their emergent condition. - New Patient This patient is new to me today: No - Critical Care Critical Care patient: No
[2017-06-03] MEDS: Methylnaltrexone Bromide 12 MG/0.6 ML KIT SQ SCH (10:54)
--- NOTE | 2017-06-03 12:33 | PN ---
Progress Note, Physician History of Present Illness: doing wel no issues mobile drainage decreasing - Current Medication List Current Medications: Active Medications Acetaminophen (Tylenol -) 650 mg PO Q6H PRN PRN Reason: FEVER OR PAIN Last Admin: 06/03/17 06:33 Dose: 650 mg Amlodipine Besylate (Norvasc -) 5 mg PO DAILY [facility] Last Admin: 06/03/17 09:37 Dose: 5 mg Dexamethasone Sodium Phosphate (Decadron Injection -) 4 mg IVPUSH ONCE PRN PRN Reason: NAUSEA AND/OR VOMITING Diphenhydramine HCl (Benadryl Injection -) 12.5 mg IVPUSH ONCE PRN PRN Reason: FOR ITCHING Heparin Sodium (Porcine) (Heparin -) 5,000 unit SQ TID [facility] Last Admin: 06/03/17 06:25 Dose: 5,000 unit Hydromorphone HCl (Dilaudid Injection -) 2 mg IVPB Q3H PRN PRN Reason: PAIN Last Admin: 06/02/17 22:34 Dose: 2 mg Piperacillin/Tazobactam/Dextrose (Zosyn 3.375gm Ivpb (Premix)) 50 mls @ 100 mls /hr IVPB Q6H-IV [facility] PRN Reason: Protocol Last Admin: 06/03/17 08:37 Dose: 100 mls/hr Methylnaltrexone [place] (Relistor -) 8 mg SQ DAILY [facility] Last Admin: 06/03/17 10:54 Dose: 8 mg Nicotine (Nicoderm Patch -) 14 mg TD DAILY [facility] Last Admin: 06/03/17 09:37 Dose: 14 mg Ondansetron HCl (Zofran Injection) 4 mg IVPUSH Q6H PRN PRN Reason: NAUSEA AND/OR VOMITING Oxycodone HCl (Roxicodone -) 5 mg PO Q3H PRN PRN Reason: MODERATE PAIN Last Admin: 06/03/17 10:53 Dose: 5 mg Polyethylene Glycol (Miralax (For Daily Use) -) 17 gm PO DAILY [facility] Last Admin: 06/03/17 09:37 Dose: 17 gm Promethazine HCl (Phenergan Injection -) 12.5 mg IVPB Q6H PRN PRN Reason: NAUSEA AND/OR VOMITING Senna (Senna -) 2 tab PO HS [facility] Last Admin: 06/02/17 22:27 Dose: 2 tab - Objective Vital Signs: Vital Signs Temperature 98.4 F 06/03/17 08:55 Pulse Rate 82 06/03/17 08:55 Respiratory Rate 20 06/03/17 08:55 Blood Pressure 157/82 06/03/17 08:55 O2 Sat by Pulse Oximetry (%) 100 06/02/17 21:00 Constitutional: Yes: No Distress, Calm Cardiovascular: Yes: Regular Rate and Rhythm Respiratory: Yes: Regular, CTA Bilaterally Gastrointestinal: Yes: Normal Bowel Sounds, Soft Musculoskeletal: Yes: Other Extremities: Yes: Other Wound/Incision: Yes: Dressing Dry and Intact, Other (yasir drain serosang discharge decreasing) Neurological: Yes: Alert, Oriented Psychiatric: Yes: Alert, Oriented Labs: CBC, BMP 06/02/17 06:00 06/01/17 06:00 Assessment/Plan S/P laminectomy #acute blood loss anemia #HTN draiange decreasing plan will stop all abx watch post abx rest as per primary\ and neurosurg
[2017-06-03] MEDS: SENNOSIDES 8.6MG TABLET (FP) PO SCH (22:11)
[2017-06-04] MEDS: oxyCODONE HCL 5 MG TABLET PO PRN ×6 (01:59→22:57)
[2017-06-04] MEDS: ACETAMINOPHEN 325 MG TABLET (FP) PO PRN (02:01)
[2017-06-04] MEDS: HEPARIN NA (PORCINE) 5,000 UNITS/ML 1ML VIAL SQ SCH ×3 (06:49→22:58)
--- NOTE | 2017-06-04 08:25 | PN ---
Physical Exam: 24H Events: yesterday - ID d/c abx ON - decreasing SUKUMAR drainage (L 15cc, R 20cc, both serosang) AM - No BM since admission, +Flatus SUBJECTIVE: Patient seen and examined. Continues to have moderate LBP. C/o left lateral thigh pain that was last night, improved over the morning and with pain medication. Denies fever, chills, n/v. No SOB, CP, or dysuria. OBJECTIVE: Vital Signs Period Temp Pulse Resp BP Sys/Manley Pulse Ox Last 24 Hr 98.3 F-100.3 F 72-89 20-20 129-157/61-98 100 GENERAL: aaox3, nad EYES: sclera anicteric, conjunctiva clear ENT: moist mucous membranes LUNGS: CTAB, no wheezes, rales or rhonchi HEART: rrr, normal S1/S2, no murmur, rub or gallop ABDOMEN: Soft, ntnd, normoactive BS LOWER EXTREMITIES: 2+ pulses, wwp, no edema NEUROLOGICAL: SUKUMAR x2 in lower lumbar draining serosangious fluid, drainage sites ttp wnl, no erythema, LE sensation to light touch intact and symmetric b/l; LE 5 /5 strength b/l No new Labs Microbiology 05/30/17 16:30 Urine - Urine [place] Urine Culture - Final NO GROWTH OBTAINED Active Medications Acetaminophen (Tylenol -) 650 mg PO Q6H PRN PRN Reason: FEVER OR PAIN Last Admin: 06/04/17 02:01 Dose: 650 mg Amlodipine Besylate (Norvasc -) 5 mg PO DAILY [facility] Last Admin: 06/04/17 09:58 Dose: 5 mg Dexamethasone Sodium Phosphate (Decadron Injection -) 4 mg IVPUSH ONCE PRN PRN Reason: NAUSEA AND/OR VOMITING Diphenhydramine HCl (Benadryl Injection -) 12.5 mg IVPUSH ONCE PRN PRN Reason: FOR ITCHING Heparin Sodium (Porcine) (Heparin -) 5,000 unit SQ TID [facility] Last Admin: 06/04/17 14:51 Dose: 5,000 unit Hydromorphone HCl (Dilaudid Injection -) 2 mg IVPB Q3H PRN PRN Reason: PAIN Last Admin: 06/02/17 22:34 Dose: 2 mg Methylnaltrexone [place] (Relistor -) 8 mg SQ DAILY [facility] Last Admin: 06/04/17 10:00 Dose: 8 mg Nicotine (Nicoderm Patch -) 14 mg TD DAILY [facility] Last Admin: 06/04/17 09:56 Dose: 14 mg Ondansetron HCl (Zofran Injection) 4 mg IVPUSH Q6H PRN PRN Reason: NAUSEA AND/OR VOMITING Oxycodone HCl (Roxicodone -) 10 mg PO Q3H PRN PRN Reason: MODERATE PAIN Last Admin: 06/04/17 19:03 Dose: 10 mg Polyethylene Glycol (Miralax (For Daily Use) -) 17 gm PO DAILY [facility] Last Admin: 06/04/17 09:59 Dose: Not Given Promethazine HCl (Phenergan Injection -) 12.5 mg IVPB Q6H PRN PRN Reason: NAUSEA AND/OR VOMITING Senna (Senna -) 2 tab PO HS [facility] Last Admin: 06/03/17 22:11 Dose: 2 tab ASSESSMENT/PLAN: 56yo man with PMH of HTN and chronic LBP who is POD5 s/p elective L3-L5 laminectomy w/ interbody cage placement and pedicle screws with fusion L3-S1. Patient is improving clinically, and able to ambulate with PT assistance. Reports pain not well controlled with current management. Per high risk case manager, patient accepted at [facility] for rehab. Discussed case with Dr. Tillman, who has cleared him for discharge to [facility]. #POD5 laminectomy/fusion -Spoke to Neurosurgery, Dr. Wong, who has cleared him for discharge to [facility] -Will contact surgical PAs tomorrow to d/c SUKUMAR drains -Increase Roxicodone from 5mg to 10mg PO Q3H PRN for hopefully improved pain control -Cont Zofran and Promethazine prn for nausea -Counseled to wear TLSO brace if seated in chair or ambulating >5min -Incentive spirometer #Constipation -Cont Relistor, Miralax, and Senna #HTN -cont home amlodipine 5mg po daily #Nicotine dependence -cont nicotine patch #FEN -No IVFs -lytes wnl -Na controlled diet #DVT PPX -Heparin 5000U sq tid #PT eval #Dispo: likely d/c tomorrow (06/05) to [facility] FULL Code d/w Dr. Leslie Cool MD PGY-1 Visit type - Emergency Visit Emergency Visit: No - New Patient This patient is new to me today: Yes Date on this admission: 06/04/17 - Critical Care Critical Care patient: No
[2017-06-04] MEDS: NICOTINE 14 MG/24 HOURS TOPICAL PATCH TD SCH (09:56)
[2017-06-04] MEDS: amLODIPine BESYLATE 5 MG TABLET (FP) PO SCH (09:58)
[2017-06-04] MEDS: POLYETHYLENE GLYCOL 3350 119 GM BTL PO SCH (09:59)
[2017-06-04] MEDS: Methylnaltrexone Bromide 12 MG/0.6 ML KIT SQ SCH (10:00)
--- NOTE | 2017-06-04 13:35 | PN ---
Progress Note, Physician History of Present Illness: doing well pain main issues physio going well able to walk - Current Medication List Current Medications: Active Medications Acetaminophen (Tylenol -) 650 mg PO Q6H PRN PRN Reason: FEVER OR PAIN Last Admin: 06/04/17 02:01 Dose: 650 mg Amlodipine Besylate (Norvasc -) 5 mg PO DAILY [facility] Last Admin: 06/04/17 09:58 Dose: 5 mg Dexamethasone Sodium Phosphate (Decadron Injection -) 4 mg IVPUSH ONCE PRN PRN Reason: NAUSEA AND/OR VOMITING Diphenhydramine HCl (Benadryl Injection -) 12.5 mg IVPUSH ONCE PRN PRN Reason: FOR ITCHING Heparin Sodium (Porcine) (Heparin -) 5,000 unit SQ TID [facility] Last Admin: 06/04/17 06:49 Dose: 5,000 unit Hydromorphone HCl (Dilaudid Injection -) 2 mg IVPB Q3H PRN PRN Reason: PAIN Last Admin: 06/02/17 22:34 Dose: 2 mg Methylnaltrexone [place] (Relistor -) 8 mg SQ DAILY [facility] Last Admin: 06/04/17 10:00 Dose: 8 mg Nicotine (Nicoderm Patch -) 14 mg TD DAILY [facility] Last Admin: 06/04/17 09:56 Dose: 14 mg Ondansetron HCl (Zofran Injection) 4 mg IVPUSH Q6H PRN PRN Reason: NAUSEA AND/OR VOMITING Oxycodone HCl (Roxicodone -) 10 mg PO Q3H PRN PRN Reason: MODERATE PAIN Polyethylene Glycol (Miralax (For Daily Use) -) 17 gm PO DAILY [facility] Last Admin: 06/04/17 09:59 Dose: Not Given Promethazine HCl (Phenergan Injection -) 12.5 mg IVPB Q6H PRN PRN Reason: NAUSEA AND/OR VOMITING Senna (Senna -) 2 tab PO HS [facility] Last Admin: 06/03/17 22:11 Dose: 2 tab - Objective Vital Signs: Vital Signs Temperature 98.3 F 06/04/17 10:00 Pulse Rate 76 06/04/17 10:00 Respiratory Rate 18 06/04/17 10:00 Blood Pressure 133/71 06/04/17 10:00 O2 Sat by Pulse Oximetry (%) 98 06/04/17 09:00 Constitutional: Yes: No Distress, Calm Respiratory: Yes: Regular, CTA Bilaterally Musculoskeletal: Yes: Other Extremities: Yes: WNL Neurological: Yes: Alert, Oriented Psychiatric: Yes: Alert, Oriented Labs: CBC, BMP 06/02/17 06:00 06/01/17 06:00 Assessment/Plan S/P laminectomy #acute blood loss anemia #HTN draiange decreasing plan stable off of abx continue to monitor physio rest as per surgery/primary team
--- NOTE | 2017-06-04 13:47 | PN ---
Teaching Attending Note Name of Resident: Jenn Cool ATTENDING PHYSICIAN STATEMENT I saw and evaluated the patient. I reviewed the resident's note and discussed the case with the resident. I agree with the resident's findings and plan as documented. SUBJECTIVE:c/o numbness down his LLE. worse when he lays on it but describes it as his entire leg feels like lead. also states he only has mild relief with pain medication. denies Cp, SOB, fever, chills, N/V/C/D, sensation changes OBJECTIVE: Last Vital Signs Temp Pulse Resp BP Pulse Ox 98.3 F 76 18 133/71 98 06/04/17 10:00 06/04/17 10:00 06/04/17 10:00 06/04/17 10:00 06/04/17 09:00 General NAD extremities sensation grossly intact B/L LE, LLE hip flexion limited by pain, full knee extension. +SLR on LLE. strength equal on RLE negative SLR ASSESSMENT AND PLAN: 56yo M with PMH chronic back pain came for scheduled lumbar laminectomy 1. Chronic back pain- s/p lumbar lamincetomy with SUKUMAR drain 05/30. will need to wear TSLO brace when out of bed or ambulating >5mins. pain not controlled. will increase oxy to 10mg. off all abx. will d/w neurosugery about numbness if this is expected post-op vs needing further workup. SUKUMAR drain managment per them. Cx reported as negative. will need LEVAR placement. 2. Acute blood loss anemia- significant blood loss during surgery. Hgb stable. iron studies WNL.txn for Hgb <7. 3. Constipation- no BM. will give relistor again today. if no BM by tomorrow will administer enema. cont stool softeners. 4. HTN-improved. cont norvasc 10mg 5. Continuous nicotine dependence-on nicotine patch. counselled on risks of continued use. 6. DVT ppx- hep sq 7. d/w CM will need LEVAR placement. JUAN to be sent
[2017-06-04] MEDS: SENNOSIDES 8.6MG TABLET (FP) PO SCH (22:57)
[2017-06-05] MEDS: oxyCODONE HCL 5 MG TABLET PO PRN ×5 (02:36→20:02)
[2017-06-05] MEDS: HEPARIN NA (PORCINE) 5,000 UNITS/ML 1ML VIAL SQ SCH ×3 (05:27→22:00)
--- NOTE | 2017-06-05 06:47 | PN ---
Physical Exam: 24H events: SUKUMAR x2 d/c today. SUBJECTIVE: Patient seen and examined. Pain better controlled today. C/o intermittent R lateral thigh tingling/numbness. Denies fever, chills, n/v. No SOB, CP, or dysuria. No BMs, +flatus OBJECTIVE: Vital Signs Period Temp Pulse Resp BP Sys/Manley Pulse Ox Last 24 Hr 97.6 F-98.8 F 70-95 16-20 112-153/54-84 98-98 GENERAL: aaox3, nad EYES: sclera anicteric, conjunctiva clear ENT: moist mucous membranes LUNGS: CTAB, no wheezes, rales or rhonchi HEART: rrr, normal S1/S2, no murmur, rub or gallop ABDOMEN: mildly distended, diffusely tender to deep palpation, normoactive BS LOWER EXTREMITIES: 2+ pulses, wwp, no edema NEUROLOGICAL: midlumbar dressing intact,no erythema, incisional tenderness; LE sensation to light touch intact and symmetric b/l; LE 5/5 strength b/l Active Medications Acetaminophen (Tylenol -) 650 mg PO Q6H PRN PRN Reason: FEVER OR PAIN Last Admin: 06/04/17 02:01 Dose: 650 mg Amlodipine Besylate (Norvasc -) 5 mg PO DAILY [facility] Last Admin: 06/05/17 10:51 Dose: 5 mg Heparin Sodium (Porcine) (Heparin -) 5,000 unit SQ TID [facility] Last Admin: 06/05/17 14:37 Dose: 5,000 unit Methylnaltrexone [place] (Relistor -) 8 mg SQ DAILY [facility] Last Admin: 06/05/17 10:53 Dose: Not Given Nicotine (Nicoderm Patch -) 14 mg TD DAILY [facility] Last Admin: 06/05/17 10:52 Dose: 14 mg Ondansetron HCl (Zofran Injection) 4 mg IVPUSH Q6H PRN PRN Reason: NAUSEA AND/OR VOMITING Oxycodone HCl (Roxicodone -) 10 mg PO Q3H PRN PRN Reason: MODERATE PAIN Last Admin: 06/05/17 14:36 Dose: 10 mg Polyethylene Glycol (Miralax (For Daily Use) -) 17 gm PO DAILY [facility] Last Admin: 06/05/17 10:53 Dose: Not Given Promethazine HCl (Phenergan Injection -) 12.5 mg IVPB Q6H PRN PRN Reason: NAUSEA AND/OR VOMITING Senna (Senna -) 2 tab PO HS [facility] Last Admin: 06/04/17 22:57 Dose: 2 tab ASSESSMENT/PLAN: 56yo man with PMH of HTN and chronic LBP who is POD5 s/p elective L3-L5 laminectomy w/ interbody cage placement and pedicle screws with fusion L3-S1. Patient is improving clinically, and able to ambulate with PT assistance. Pain well controlled. Patient accepted at [facility] for rehab, awaiting insurance approval. Discussed case with Dr. Tillman, who has cleared him for discharge. #POD6 laminectomy/fusion -Cont 10mg PO Q3H PRN -Cont Zofran and Promethazine prn for nausea -Counseled to wear TLSO brace if seated in chair or ambulating >5min -Incentive spirometer #Constipation -Refused enema -Cont Relistor, Miralax, and Senna -Magnesium Citrate 300cc ONCE #HTN -cont home amlodipine 5mg po daily #Nicotine dependence -cont nicotine patch #FEN -No IVFs -lytes wnl -Na controlled diet #DVT PPX -Heparin 5000U sq tid #PT eval #Dispo: accepted at [facility], awaiting insurance approval FULL Code d/w Dr. Leslie Cool MD PGY-1 Visit type - Emergency Visit Emergency Visit: No - New Patient This patient is new to me today: No - Critical Care Critical Care patient: No
[2017-06-05 07:50] LABS: MCHC 31.8 g/dl (32.0-35.9); MEAN CELL VOLUME 81.7 fl (80-96); MEAN PLT VOLUME 8.5 fl (7.5-11.1); PLATELET COUNT 356 K/MM3 (134-434); RDW 17.7 % (11.9-15.9); WHITE BLOOD COUNT 7.8 K/mm3 (4.0-10.0)
--- NOTE | 2017-06-05 09:02 | DS ---
Physical Exam: SUBJECTIVE: Patient seen and examined OBJECTIVE: Vital Signs Period Temp Pulse Resp BP Sys/Manley Pulse Ox Last 24 Hr 97.6 F-98.8 F 70-95 16-20 112-153/54-84 98 PHYSICAL EXAM GENERAL: The patient is awake, alert, and fully oriented, in no acute distress. HEAD: Normal with no signs of trauma. EYES: PERRL, extraocular movements intact, sclera anicteric, conjunctiva clear. ENT: Ears normal, nares patent, oropharynx clear without exudates, moist mucous membranes. NECK: Trachea midline, full range of motion, supple. LUNGS: Breath sounds equal, clear to auscultation bilaterally, no wheezes, no crackles, no accessory muscle use. HEART: Regular rate and rhythm, S1, S2 without murmur, rub or gallop. ABDOMEN: Soft, nontender, nondistended, normoactive bowel sounds, no guarding, no rebound, no hepatosplenomegaly, no masses. EXTREMITIES: 2+ pulses, warm, well-perfused, no edema. NEUROLOGICAL: Cranial nerves II through XII grossly intact. Normal speech, gait not observed. PSYCH: Normal mood, normal affect. SKIN: Warm, dry, normal turgor, no rashes or lesions noted. LABS Laboratory Results - last 24 hr 06/05/17 07:25 WBC 7.8 RBC 3.40 L Hgb 8.8 L Hct 27.8 L MCV 81.7 MCH 26.0 MCHC 31.8 L RDW 17.7 H Plt Count 356 D MPV 8.5 D HOSPITAL COURSE: Date of Admission:05/30/17 Date of Discharge: 06/05/17 Minutes to complete discharge: 45 Discharge Summary Reason For Visit: LUMBAR DEGEN DISC DISEASE W/INSTABILITY L3-S1 Hospital Course: Mr. Lazcano is a 56yo man with PMH of HTN and chronic LBP who s/p elective L3- L5 laminectomy w/ interbody cage placement and pedicle screws with fusion L3-S1 on 05/30/[address] Palmer Tillman. He had following with Dr. Laura for pain control and was referred to Dr. Tillman when his pain was no longer well controlled. Completed 5day course of Zosyn and Vancomycin for empiric coverage. Constipation (last BM prior to admission) has been treated with Relistor, miralax, and senna. HTN well controlled with home dose of amlodipine 5mg PO daily. He is now ambulating with PT assistance, and has been counseled to wear his TLSO brace whenever seated or ambulating for >5min. Condition: Improved - Instructions Diet, Activity, Other Instructions: RECOMMENDATIONS: -You were admitted to the hospital following spinal surgery by Dr. Palmer Tillman on 05/30/17. -You will be going to a sub-acute rehabilitation facility. -Follow recommendations at your rehab facility about resuming your normal daily activities as you slowly increase your strength -You may resume your normal diet. MEDICATIONS: -Please resume your regular home medications. -You will also be given roxicodone 10mg tablets. Please take 1 tablet by mouth every 4 hours or as needed for pain control. FOLLOW-UPS: -Dr. Tillman Please return to the ED if your symptoms worsen or you develop fever/chills. Referrals: Palmer Tillman MD, FAANS [Staff Physician] - - Home Medications Comprehensive Discharge Medication List: Ambulatory Orders Oxycodone HCl/Acetaminophen [Percocet 5-325 mg Tablet] 1 - 2 tab PO Q6H - Discharge Referral Referred to [facility] Med [facility].: No
[2017-06-05] MEDS ORDERED: PT OWN MED DRAWER 7, Y5N ONE (10:49)
[2017-06-05] MEDS: amLODIPine BESYLATE 5 MG TABLET (FP) PO SCH (10:51)
[2017-06-05] MEDS: NICOTINE 14 MG/24 HOURS TOPICAL PATCH TD SCH (10:52)
[2017-06-05] MEDS: Methylnaltrexone Bromide 12 MG/0.6 ML KIT SQ SCH (10:53)
[2017-06-05] MEDS: POLYETHYLENE GLYCOL 3350 119 GM BTL PO SCH (10:53)
[2017-06-05] MEDS ORDERED: MAGNESIUM CITRATE 300 ML BOTTLE PO ONE (13:54)
--- NOTE | 2017-06-05 13:55 | PROC ---
Procedure Note Procedure: SUKUMAR removal X2 Removed from Lumbar region bilaterally. Distal tip full intact. Patient tolerated well with no blood loss Supervised by Dr. Nelson. Charity Gill, PGY-2
--- NOTE | 2017-06-05 15:07 | PN ---
Progress Note, Physician History of Present Illness: patient doing well no new issues yasir draining still quite a bit sero sang - Current Medication List Current Medications: Active Medications Acetaminophen (Tylenol -) 650 mg PO Q6H PRN PRN Reason: FEVER OR PAIN Last Admin: 06/04/17 02:01 Dose: 650 mg Amlodipine Besylate (Norvasc -) 5 mg PO DAILY [facility] Last Admin: 06/05/17 10:51 Dose: 5 mg Heparin Sodium (Porcine) (Heparin -) 5,000 unit SQ TID [facility] Last Admin: 06/05/17 14:37 Dose: 5,000 unit Methylnaltrexone [place] (Relistor -) 8 mg SQ DAILY [facility] Last Admin: 06/05/17 10:53 Dose: Not Given Nicotine (Nicoderm Patch -) 14 mg TD DAILY [facility] Last Admin: 06/05/17 10:52 Dose: 14 mg Ondansetron HCl (Zofran Injection) 4 mg IVPUSH Q6H PRN PRN Reason: NAUSEA AND/OR VOMITING Oxycodone HCl (Roxicodone -) 10 mg PO Q3H PRN PRN Reason: MODERATE PAIN Last Admin: 06/05/17 14:36 Dose: 10 mg Polyethylene Glycol (Miralax (For Daily Use) -) 17 gm PO DAILY [facility] Last Admin: 06/05/17 10:53 Dose: Not Given Promethazine HCl (Phenergan Injection -) 12.5 mg IVPB Q6H PRN PRN Reason: NAUSEA AND/OR VOMITING Senna (Senna -) 2 tab PO HS [facility] Last Admin: 06/04/17 22:57 Dose: 2 tab - Objective Vital Signs: Vital Signs Temperature 98.2 F 06/05/17 14:47 Pulse Rate 98 H 06/05/17 14:47 Respiratory Rate 16 06/05/17 14:47 Blood Pressure 116/85 06/05/17 14:47 O2 Sat by Pulse Oximetry (%) 98 06/04/17 22:00 Constitutional: Yes: No Distress, Calm Neck: Yes: Supple Cardiovascular: Yes: Regular Rate and Rhythm Respiratory: Yes: Regular, CTA Bilaterally Gastrointestinal: Yes: Normal Bowel Sounds, Soft Musculoskeletal: Yes: WNL Extremities: Yes: Other Wound/Incision: Yes: Dressing Dry and Intact, Other (yasir in place) Neurological: Yes: Alert, Oriented Psychiatric: Yes: Alert, Oriented Labs: CBC, BMP 06/05/17 07:25 06/01/17 06:00 Assessment/Plan S/P laminectomy #acute blood loss anemia #HTN draiange decreasing plan stable off of abx continue to monitor physio rest as per surgery/primary team
--- NOTE | 2017-06-05 15:59 | PN ---
Teaching Attending Note Name of Resident: Jenn Cool ATTENDING PHYSICIAN STATEMENT I saw and evaluated the patient. I reviewed the resident's note and discussed the case with the resident. I agree with the resident's findings and plan as documented. SUBJECTIVE:states pain is improved and controlled. no BM. refusing enema. states numbness if improved in left leg. having intermittent numbness in RLE today. denies Cp, SOB, fever, chills, N/V/C/D OBJECTIVE: Last Vital Signs Temp Pulse Resp BP Pulse Ox 98.2 F 98 H 16 116/85 98 06/05/17 14:47 06/05/17 14:47 06/05/17 14:47 06/05/17 14:47 06/04/17 22:00 General NAD abdomen mildly distended. no tenderness extremities sensation grossly intact B/L LE, LLE hip flexion limited by pain, full knee extension. strength equal on RLE ASSESSMENT AND PLAN: 56yo M with PMH chronic back pain came for scheduled lumbar laminectomy 1. Chronic back pain- s/p lumbar lamincetomy with SUKUMAR drain 05/30. s/p SUKUMAR removal 06/05. spoke with neurosurgeon who is aware of intermittent leg numbness and states its from lateral femoral nerve irritation from body habitus and positional laying. will need to wear TSLO brace when out of bed or ambulating >5mins. pain controlled. off all abx. will need LEVAR placement. 2. Acute blood loss anemia- significant blood loss during surgery. Hgb stable. iron studies WNL.txn for Hgb <7. 3. Constipation- no BM. recived relistor x2 doses without success. refusing enema at this time. wants to drink coffee as he says it usually works for him. cont stool softeners. 4. HTN-improved. cont norvasc 10mg 5. Continuous nicotine dependence-on nicotine patch. counselled on risks of continued use. 6. DVT ppx- hep sq 7. accepted at [facility], awaiting authorization
[2017-06-05] MEDS: SENNOSIDES 8.6MG TABLET (FP) PO SCH (22:00)
[2017-06-06] MEDS: oxyCODONE HCL 5 MG TABLET PO PRN ×4 (01:04→14:52)
[2017-06-06] MEDS: HEPARIN NA (PORCINE) 5,000 UNITS/ML 1ML VIAL SQ SCH (05:05)
[2017-06-06] MEDS ORDERED: PT OWN MED DRAWER 7, Y5N ONE (09:28)
[2017-06-06] MEDS: Methylnaltrexone Bromide 12 MG/0.6 ML KIT SQ SCH (09:32)
[2017-06-06] MEDS: NICOTINE 14 MG/24 HOURS TOPICAL PATCH TD SCH (09:33)
[2017-06-06] MEDS: POLYETHYLENE GLYCOL 3350 119 GM BTL PO SCH (09:33)
[2017-06-06] MEDS: amLODIPine BESYLATE 5 MG TABLET (FP) PO SCH (09:33)
[2017-06-06] MEDS ORDERED: MAGNESIUM CITRATE 300 ML BOTTLE PO ONE (10:45)
[2017-06-06] MEDS ORDERED: BISACODYL 10 MG SUPP.RECT RC ONE (12:01)
--- NOTE | 2017-06-06 14:22 | DS ---
Physical Exam: SUBJECTIVE: Patient seen and examined. Pain well controlled today. C/o intermittent R lateral thigh tingling/numbness. Denies fever, chills, n/v. No SOB, CP, or dysuria. 1x loose still this afternoon. OBJECTIVE: Vital Signs Period Temp Pulse Resp BP Sys/Manley Pulse Ox Last 24 Hr 98.1 F-98.8 F 78-98 16-20 116-129/49-85 97 PHYSICAL EXAM GENERAL: aaox3, nad EYES: sclera anicteric, conjunctiva clear ENT: moist mucous membranes LUNGS: CTAB, no wheezes, rales or rhonchi HEART: rrr, normal S1/S2, no murmur, rub or gallop ABDOMEN: mildly distended, diffusely tender to deep palpation, normoactive BS LOWER EXTREMITIES: 2+ pulses, wwp, no edema NEUROLOGICAL: midlumbar dressing intact,no erythema, incisional tenderness; LE sensation to light touch intact and symmetric b/l; LE 5/5 strength b/l LABS CBC, BMP 06/05/17 07:25 06/01/17 06:00 Microbiology 05/30/17 16:30 Urine - Urine Bonilla Urine Culture - Final NO GROWTH OBTAINED HOSPITAL COURSE: Date of Admission:05/30/17 Date of Discharge: 06/06/17 Minutes to complete discharge: 45 Discharge Summary Reason For Visit: LUMBAR DEGEN DISC DISEASE W/INSTABILITY L3-S1 Hospital Course: Mr. Lazcano is a 56yo man with PMH of HTN and chronic LBP who s/p elective L3- L5 laminectomy w/ interbody cage placement and pedicle screws with fusion L3-S1 on 05/30/[address] Palmer Tillman. He had following with Dr. Laura for pain control and was referred to Dr. Tillman when his pain was no longer well controlled. Completed 5day course of Zosyn and Vancomycin for empiric coverage. Constipation (last BM prior to admission) has been treated with Relistor, miralax, Senna, and Magnesium Citrate. HTN well controlled with home dose of amlodipine 5mg PO daily. He is now ambulating with PT assistance, and has been counseled to wear his TLSO brace whenever seated or ambulating for > 5min. Condition: Stable - Instructions Diet, Activity, Other Instructions: RECOMMENDATIONS: -You were admitted to the hospital following spinal surgery by Dr. Palmer Tillman on 05/30/17. -You will be going to an acute rehabilitation facility. -Follow recommendations at your rehab facility about resuming your normal daily activities as you slowly increase your strength. -You may resume your normal diet. NEW MEDICATIONS: -Please resume your regular home medications. -You will also be given Roxicodone 10mg tablets. Please take 1 tablet by mouth every 4 hours or as needed for pain control. -Please continue laxatives as per the medications you were prescribed to ensure a bowel movement once a day. -Do not take narcotics if dizzy, sleepy or lethargic -Do no drive, operate heavy machinery or take important decisions alone while on narcotics -total acetaminophen dose in 24 hours from all sources not to exceed 3 g. FOLLOW-UPS: -Please follow-up with Dr. Tillman within 1 week. Please have rehab schedule the appointment on discharge. Please return to the ED if your symptoms worsen or you develop fever/chills. Referrals: Palmer Tillman MD, [facility] [Staff Physician] - Disposition: DETENTION FACILITY This patient is new to me today: No Emergency Visit: No Critical Care patient: No - Discharge Referral Referred to [facility] No
[2017-06-06] MEDS ORDERED: SENNOSIDES 8.6MG TABLET (FP) PO PRN (14:54)
[2017-06-06] MEDS ORDERED: POLYETHYLENE GLYCOL 3350 119 GM BTL PO PRN (14:56)
[2017-06-06] MEDS ORDERED: BISACODYL 10 MG SUPP.RECT PR PRN (14:56)
--- NOTE | 2017-06-06 15:17 | PN ---
Progress Note, Physician History of Present Illness: stable still c/o of numbness in the legs pain still there able to walk - Current Medication List Current Medications: Active Medications Acetaminophen (Tylenol -) 650 mg PO Q6H PRN PRN Reason: FEVER OR PAIN Last Admin: 06/04/17 02:01 Dose: 650 mg Amlodipine Besylate (Norvasc -) 5 mg PO DAILY [facility] Last Admin: 06/06/17 09:33 Dose: 5 mg Bisacodyl (Dulcolax Suppository -) 10 mg ID PRN PRN PRN Reason: CONSTIPATION Heparin Sodium (Porcine) (Heparin -) 5,000 unit SQ TID [facility] Last Admin: 06/06/17 05:05 Dose: 5,000 unit Methylnaltrexone Perdido (Relistor -) 8 mg SQ DAILY [facility] Last Admin: 06/06/17 09:32 Dose: 8 mg Nicotine (Nicoderm Patch -) 14 mg TD DAILY [facility] Last Admin: 06/06/17 09:33 Dose: 14 mg Ondansetron HCl (Zofran Injection) 4 mg IVPUSH Q6H PRN PRN Reason: NAUSEA AND/OR VOMITING Oxycodone HCl (Roxicodone -) 10 mg PO Q3H PRN PRN Reason: MODERATE PAIN Last Admin: 06/06/17 14:52 Dose: 10 mg Polyethylene Glycol (Miralax (For Daily Use) -) 17 gm PO DAILY PRN PRN Reason: CONSTIPATION Promethazine HCl (Phenergan Injection -) 12.5 mg IVPB Q6H PRN PRN Reason: NAUSEA AND/OR VOMITING Senna (Senna -) 2 tab PO HS PRN PRN Reason: CONSTIPATION - Objective Vital Signs: Vital Signs Temperature 98.7 F 06/06/17 06:18 Pulse Rate 80 06/06/17 06:18 Respiratory Rate 20 06/06/17 06:18 Blood Pressure 120/69 06/06/17 06:18 O2 Sat by Pulse Oximetry (%) 97 06/05/17 21:00 Constitutional: Yes: No Distress, Calm, Obese Cardiovascular: Yes: Regular Rate and Rhythm Respiratory: Yes: Regular, CTA Bilaterally Gastrointestinal: Yes: Normal Bowel Sounds, Soft Musculoskeletal: Yes: WNL Extremities: Yes: Other Neurological: Yes: Alert, Oriented Psychiatric: Yes: Alert, Oriented Labs: CBC, BMP 06/05/17 07:25 10/20/17 06:00 Assessment/Plan S/P laminectomy #acute blood loss anemia #HTN draiange decreasing plan stable off of abx continue to monitor physio rest as per surgery/primary team physio
[2017-06-06 15:33] VITALS: BP 121/85; PULSE 87; TEMP 98.3
--- NOTE | 2017-06-06 18:56 | PN ---
Teaching Attending Note Name of Resident: Jenn Cool ATTENDING PHYSICIAN STATEMENT I saw and evaluated the patient. I reviewed the resident's note and discussed the case with the resident. I agree with the resident's findings and plan as documented. SUBJECTIVE: patient seen and examined, no new complaints, attempting bowel movement. no new concerns, left numbness overall unchanged, no new weakness. OBJECTIVE: Vital Signs Period Temp Pulse Resp BP Sys/Manley Pulse Ox Last 24 Hr 98.3 F-98.9 F 74-87 18-20 112-126/49-85 97-97 CVS - S1S2 regular Chest CTAB abdomen - soft distended, non tender, positive bowel sounds Extr - no edema, power symmetric 5/5 bilaterally, SUKUMAR drain site clean ASSESSMENT AND PLAN: clinically stable. Spine surgery/ID cleared for discharge, no active concerns. Small BM with dulcolax suppository. COntinue active bowel regimen at rehab with narcotics. Outpatient spine follow up. D/c to rehab today. plan discussed with patient in detail.
== END 2017-06-06 15:32 | DRG 460 ==
LOC: JSAMEDAYSX 07:46 → J8W 20:15
PROVIDERS: ADMIT Internal Medicine; ATTEND Hospitalist
PROC: 0SB20ZZ Excision of Lumbar Vertebral Disc, Open Approach (ICD-10-PCS; 2017-05-30)
PROC: 0SB30ZZ Excision of Lumbosacral Joint, Open Approach (ICD-10-PCS; 2017-05-30)
PROC: 0HX6XZZ Transfer Back Skin, External Approach (ICD-10-PCS; 2017-05-30)
PROC: 0SG30AJ Fusion of Lumbosacral Joint with Interbody Fusion Device, Posterior Approach, Anterior Column, Open Approach (ICD-10-PCS; principal; 2017-05-30 10:00)
DX: M51.27 Other intervertebral disc displacement, lumbosacral region (principal); D62 Acute posthemorrhagic anemia; N17.9 Acute kidney failure, unspecified; F17.210 Nicotine dependence, cigarettes, uncomplicated; I10 Essential (primary) hypertension; I95.9 Hypotension, unspecified; K59.00 Constipation, unspecified
CPT/HCPCS: 36415; 72131-TC; 76000-TC; 80048; 80053; 82728; 83540; 83550; 85025; 85027; 86850; 86900; 86901; 87086; 94010; 94760; 97116-GP; 97161-GP; G0480; J1644